=== PATIENT | male | born 1960 | race Caucasian/White ===

== ENCOUNTER 2017-10-11 02:46 | Inpatient (IN) | payer BC, OTHER ==
[2017-10-11] VITALS (8 sets, daily range): BP systolic 87–116; BP diastolic 55–70
[~2017-10-11] VITALS: Ht 182.9 cm; Wt 72.7 kg
[2017-10-11] MEDS ORDERED: TOPROL XL100 MG PO (02:52)
[2017-10-11] MEDS ORDERED: PRILOSEC OTC20 MG PO (02:52)
[2017-10-11] MEDS ORDERED: CIPROFLOXACIN500 MG PO (02:52)
[2017-10-11] MEDS ORDERED: LISINOPRIL10 MG PO (02:52)
[2017-10-11] MEDS ORDERED: LEVALBUTEROL HCL SOLN NEBU 0.63 MG/3 ML NEB INH STA (03:04)
[2017-10-11] MEDS ORDERED: IPRATROPIUM BROMIDE 0.02% 2.5 ML NEB NEB STA (03:04)
[2017-10-11] MEDS ORDERED: SODIUM CHLORIDE 0.9% 1000ML 1,000 ML IV STA ×2 (03:09→04:17)
[2017-10-11 03:13] LABS: BASOPHILS % 0.3 % (0.0-1.0); EOSINOPHILS % 0.5 % (0.0-6.0); HEMATOCRIT 39.9 % (38.2-49.6); HEMOGLOBIN 13.8 g/dL (14.0-18.0); LYMPHOCYTES # (AUTO) 0.7 (1.0-3.2); MEAN CORPUSCULAR HEMOGLOBIN 31.7 pg (28-32); MEAN CORPUSCULAR HGB CONC 34.6 g/dL (31-35); MEAN CORPUSCULAR VOLUME 91.7 fL (81-99); MONOCYTES # (AUTO) 0.1 (0.2-0.8); MONOCYTES % 2.3 % (4.4-11.3); NEUTROPHILS # (AUTO) 4.8 (2.1-6.9); NEUTROPHILS % 83.9 % (38.7-80.0); PLATELET COUNT 132 x10e3/uL (140-360); RED BLOOD COUNT 4.35 x10e6/uL (4.3-5.7); RED CELL DISTRIBUTION WIDTH 13.8 % (11.7-14.4)
[2017-10-11] MEDS ORDERED: SODIUM CHLORIDE 0.9% 1000ML 1,000 ML ONE (03:16)
[2017-10-11 03:18] LABS: BILIRUBIN,URINE NEGATIVE (NEGATIVE); KETONES,URINE NEGATIVE (NEGATIVE); LEUKOCYTE ESTERASE ,URINE TRACE (NEGATIVE); NITRITE,URINE NEGATIVE (NEGATIVE); URINE UROBILINOGEN 0.2 mg/dL (0.2 - 1)
[2017-10-11 03:23] LABS: CLARITY,URINE CLEAR (CLEAR); COLOR,URINE YELLOW (YELLOW); PROTEIN,URINE DIPSTICK 1+ (NEGATIVE)
[2017-10-11 03:28] LABS: INR 1.24; PROTHROMBIN TIME 14.7 seconds (11.9-14.5)
[2017-10-11 03:29] LABS: PARTIAL THROMBOPLASTIN TIME 30.3 seconds (23.8-35.5)
[2017-10-11 03:30] LABS: BACTERIA,URINE RARE /HPF; EPITHELIAL CELLS,URINE FEW /LPF
[2017-10-11 03:36] LABS: ALANINE AMINOTRANSFERASE 16 IU/L (0-55); ALBUMIN 3.3 g/dL (3.5-5.0); ALKALINE PHOSPHATASE 83 IU/L (40-150); ANION GAP 13.4 mmol/L (8-16); B-TYPE NATRIURETIC PEPTIDE2 84.5 pg/mL (0-100); BLOOD UREA NITROGEN 16 mg/dL (7-26); BUN/CREATININE RATIO 17 (6-25); CALCIUM 8.5 mg/dL (8.4-10.2); CARBON DIOXIDE 22 mmol/L (22-29); CHLORIDE 105 mmol/L (98-107); CREATINE KINASE 57 IU/L (30-200); CREATININE, SERUM 0.92 mg/dL (0.72-1.25); EST GLOMERULAR FILTRATION RATE > 60 ML/MIN (60-); GLUCOSE 147 mg/dL (74-118); MAGNESIUM 1.4 MG/DL (1.3-2.1); POTASSIUM 3.4 mmol/L (3.5-5.1); SODIUM 137 mmol/L (136-145)
[2017-10-11] MEDS ORDERED: CEFTRIAXONE SOD 1 GM VIAL IV SCH (03:45)
[2017-10-11] MEDS: AZITHROMYCIN 500MG/NS 250 ML 250 ML IV SCH ×2 (03:53→09:05)
--- NOTE | 2017-10-11 03:54 | Diagnostic Imaging Report ---
EXAM: CHEST SINGLE (PORTABLE), AP 1 view INDICATION: Shortness of breath COMPARISON: None FINDINGS: LINES/TUBES: None LUNGS: No consolidations or edema. PLEURA: No effusions or pneumothorax. HEART AND MEDIASTINUM: Normal size and contour. BONES AND SOFT TISSUES: No acute findings. Old right-sided rib fractures. IMPRESSION: No acute thoracic abnormality. Signed by: Dr. Rochelle Downey M.D. on 10/11/2017 3:50 AM
--- OUTSIDE RECORDS SUMMARY | 2017-10-11 04:25 | XMS REPORT ---
Author Author [facility] Address Unknown Phone Unavailable Care Team Providers Care Model Maker Plaster Name Role Phone VALARIE RAMIRO Unavailable Unavailable Problems This patient has no known problems. Allergies, Adverse Reactions, Alerts This patient has no known allergies or adverse reactions. Medications This patient has no known medications. Results Test Description Test Time Test Comments Text Results Atomic Results Result Comments CHEST SINGLE (PORTABLE) [place] [address] Patient Name: CIERRA CLARKE MR #: [id number] : 1960 Age/Sex: 57/M Req #: [id number] Adm Physician: Ordered by: RAMIRO SHEPPARD MD Report #: [id number] Location: ER Room/Bed: Procedure: [id number] DX/CHEST SINGLE (PORTABLE) Exam Date: Exam Time: REPORT STATUS: Signed EXAM: CHEST SINGLE (PORTABLE ), AP 1 view INDICATION: Shortness of breath COMPARISON: None FINDINGS : LINES/TUBES: None LUNGS: No consolidations or edema. PLEURA: No effusions or pneumothorax. HEART AND MEDIASTINUM: Normal size and contour. BONES AND SOFT TISSUES: No acute findings. Old right-sided rib fractures. IMPRESSION: No acute thoracic abnormality. Signed by: Dr. Isaac Lugo M.D. on 10/11/2017 3:50 AM Dictated By: ISAAC LUGO MD 9 Transcribed By : DELGADO on 10/11/17349 COPY TO: RAMIRO SHEPPARD MD
[2017-10-11] MEDS ORDERED: MORPHINE SULFATE 2 MG/ML SYR IV PRN (04:30)
[2017-10-11] MEDS ORDERED: ONDANSETRON HCL INJ 2 MG/ML VIAL IV PRN (04:30)
[2017-10-11] MEDS ORDERED: LORAZEPAM INJ 2 MG/ML VIAL IV PRN (04:30)
[2017-10-11] MEDS ORDERED: KCL 20MEQ/.9 SOD CHL 1,000 ML IV ONE (04:30)
[2017-10-11] MEDS ORDERED: METHYLPREDNISOLONE SOD SUCC 125 MG/2ML VIAL IV SCH (06:00)
[2017-10-11] MEDS: IPRATROPIUM BROMIDE 0.02% 2.5 ML NEB NEB SCH ×4 (07:00→20:30)
[2017-10-11] MEDS ORDERED: LEVALBUTEROL HCL SOLN NEBU 0.63 MG/3 ML NEB INH SCH (07:00)
[2017-10-11] MEDS ORDERED: FAMOTIDINE 20 MG/2 ML VIAL IV SCH (09:00)
[2017-10-11] MEDS ORDERED: ASPIRIN 81 MG ENTERIC COATED PO SCH (09:00)
[2017-10-11] MEDS ORDERED: NICOTINE 21 MG/EA PATCH TOP PRN (10:15)
[2017-10-11] MEDS: SODIUM CHLORIDE 0.9% 1000ML 1,000 ML IV SCH ×2 (10:28→21:34)
[2017-10-11] MEDS ORDERED: POTASSIUM CHLORIDE 20 MEQ TAB CR PO ONE (10:40)
--- NOTE | 2017-10-11 11:12 | Diagnostic Imaging Report ---
PROCEDURE: CHEST SINGLE (PORTABLE) COMPARISON: Earlier 10/11/2017 INDICATIONS: COUGH FINDINGS: Lungs remain clear without consolidation, pleural effusion, or pneumothorax. Cardiomediastinal contour and pulmonary vasculature are within normal limits. No acute osseous abnormalities. Right-sided rib fracture deformities. CONCLUSION: No acute cardiopulmonary abnormality. Dictated by: Prosper Bradford M.D. on 10/11/2017 at 11:12 Electronically approved by: Prosper Bradford M.D. on 10/11/2017 at 11:12
[2017-10-11] MEDS: ASPIRIN 325 MG TAB PO SCH (12:33)
[2017-10-11] MEDS ORDERED: HEPARIN SOD (PORCINE) 5,000 UNIT/ML VIAL IV ONE (13:30)
[2017-10-11] MEDS ORDERED: PIPER-TAZ 3.375 GM/50 ML BAG IV SCH (14:00)
[2017-10-11] MEDS: PIPER-TAZ 3.375 GM 50 ML IV SCH ×2 (14:17→21:12)
[2017-10-11 14:42] LABS: BASOPHILS % 0.1 % (0.0-1.0); HEMOGLOBIN 12.7 g/dL (14.0-18.0); LYMPHOCYTES # (AUTO) 0.4 (1.0-3.2); MEAN CORPUSCULAR HEMOGLOBIN 31.4 pg (28-32); MEAN CORPUSCULAR HGB CONC 33.4 g/dL (31-35); MEAN CORPUSCULAR VOLUME 93.8 fL (81-99); MONOCYTES # (AUTO) 0.2 (0.2-0.8); MONOCYTES % 2.1 % (4.4-11.3); NEUTROPHILS # (AUTO) 7.2 (2.1-6.9); NEUTROPHILS % 92.4 % (38.7-80.0); PLATELET COUNT 126 x10e3/uL (140-360); RED BLOOD COUNT 4.05 x10e6/uL (4.3-5.7); RED CELL DISTRIBUTION WIDTH 14.1 % (11.7-14.4)
[2017-10-11 14:51] LABS: INR 1.35; PROTHROMBIN TIME 15.7 seconds (11.9-14.5)
[2017-10-11] MEDS: HEPARIN 25,000U/0.45% NS 250ML 1,000 UNIT in SODIUM CHLORIDE 0.9% 250ML 0 ML IV SCH (15:00)
[2017-10-11 15:24] LABS: LYMPHOCYTES % (MANUAL) 9 % (19-48); MONOCYTES % (MANUAL) 2 % (3.4-9.0); NEUTROPHILS % (MANUAL) 89 % (40-74)
[2017-10-11 15:25] LABS: PLATELET ESTIMATE SLIGHTLY DECREASED; POLYCHROMASIA FEW; RBC MORPHOLOGY COMMENT NORMAL
[2017-10-11] MEDS ORDERED: ENOXAPARIN SOD INJ 40 MG/0.4 ML SYR SC SCH (17:00)
[2017-10-11 18:53] LABS: CREATINE KINASE MB 5.2 ng/mL (0-5.0)
[2017-10-11 19:01] LABS: CHOL/HDL RATIO 2.5 (3.9-4.7)
[2017-10-12] VITALS (8 sets, daily range): BP systolic 97–144; BP diastolic 55–82
[2017-10-12] MEDS: IPRATROPIUM BROMIDE 0.02% 2.5 ML NEB NEB SCH ×3 (00:15→06:30)
[2017-10-12] MEDS: ACETAMINOPHEN 325 MG TAB PO PRN (00:25)
[2017-10-12 04:10] LABS: BASOPHILS % 0.2 % (0.0-1.0); HEMATOCRIT 36.8 % (38.2-49.6); HEMOGLOBIN 12.4 g/dL (14.0-18.0); LYMPHOCYTES % 9.1 % (18.0-39.1); MEAN CORPUSCULAR HEMOGLOBIN 31.6 pg (28-32); MEAN CORPUSCULAR HGB CONC 33.7 g/dL (31-35); MEAN CORPUSCULAR VOLUME 93.9 fL (81-99); MONOCYTES # (AUTO) 0.6 (0.2-0.8); MONOCYTES % 5.4 % (4.4-11.3); NEUTROPHILS # (AUTO) 9.1 (2.1-6.9); NEUTROPHILS % 84.8 % (38.7-80.0); PLATELET COUNT 118 x10e3/uL (140-360); RED BLOOD COUNT 3.92 x10e6/uL (4.3-5.7); RED CELL DISTRIBUTION WIDTH 14.3 % (11.7-14.4)
[2017-10-12 04:33] LABS: ALANINE AMINOTRANSFERASE 35 IU/L (0-55); ALBUMIN 2.8 g/dL (3.5-5.0); ALKALINE PHOSPHATASE 65 IU/L (40-150); ANION GAP 11.2 mmol/L (8-16); BLOOD UREA NITROGEN 13 mg/dL (7-26); BUN/CREATININE RATIO 19 (6-25); CALCIUM 8.2 mg/dL (8.4-10.2); CARBON DIOXIDE 22 mmol/L (22-29); CHLORIDE 110 mmol/L (98-107); CHOL/HDL RATIO 2.4 (3.9-4.7); CHOLESTEROL 88 MD/DL (0-199); CREATININE, SERUM 0.68 mg/dL (0.72-1.25); EST GLOMERULAR FILTRATION RATE > 60 ML/MIN (60-); GLUCOSE 119 mg/dL (74-118); HDL CHOLESTEROL 37 MG/DL (40-60); LDL CHOLESTEROL 41 MG/DL (60-130); MAGNESIUM 1.6 MG/DL (1.3-2.1); POTASSIUM 4.2 mmol/L (3.5-5.1); SODIUM 139 mmol/L (136-145); TRIGLYCERIDES 50 MG/DL (0-149)
[2017-10-12 04:40] LABS: CREATINE KINASE MB 4.1 ng/mL (0-5.0)
[2017-10-12] MEDS: PIPER-TAZ 3.375 GM 50 ML IV SCH (05:26)
[2017-10-12] MEDS ORDERED: SODIUM CHLORIDE 0.9% 100 ML ONE (05:57)
[2017-10-12] MEDS: SODIUM CHLORIDE 0.9% 1000ML 1,000 ML IV SCH (07:12)
[2017-10-12] MEDS: PREDNISONE 20 MG TAB PO SCH (08:34)
[2017-10-12] MEDS: ASPIRIN 325 MG TAB PO SCH (08:34)
[2017-10-12] MEDS ORDERED: ALBUTEROL/IPRATROPIUM 3 ML NEB NEB PRN (10:00)
[2017-10-12 10:35] LABS: CREATINE KINASE MB 4.6 ng/mL (0-5.0)
[2017-10-12] MEDS: ALBUTEROL/IPRATROPIUM 3 ML NEB NEB SCH ×3 (11:25→19:15)
--- NOTE | 2017-10-12 13:20 | Progress Note ---
DATE: October 12, 2017 CARDIOLOGY PROGRESS NOTE SUBJECTIVE: Patient denies chest pain or shortness of breath. OBJECTIVE VITAL SIGNS: Temperature 97.6 degrees, pulse 56, respiratory rate 16, blood pressure 113/62, oxygen saturation 97% on room air. GENERAL: Awake, alert, in no acute distress. LUNGS: Clear to auscultation bilaterally. No wheezes or crackles. CARDIOVASCULAR: Normal rate, regular rhythm. No murmur. Normal S1 and S2. ABDOMEN: Soft, nontender. EXTREMITIES: No edema. CARDIAC MEDICATIONS 1. Aspirin 325 mg p.o. daily. 2. Heparin drip. LABS: WBC 10.73, hemoglobin 12.4, hematocrit 36.8, platelets 118. Sodium 139, potassium 4.2, chloride 110, CO2 22, BUN 13, creatinine 0.68. Troponin 0.395. TELEMETRY: Sinus bradycardia. IMPRESSION 1. Neb-GB-oyteugdix myocardial infarction. 2. Chronic obstructive pulmonary disease exacerbation. 3. Hypertension. 4. Urinary tract infection, gram-negative rods. RECOMMENDATIONS: Continue heparin drip. Continue current cardiac medications. No beta luana given sinus bradycardia. Planned for cardiac catheterization tomorrow. NPO after midnight. Thank you for this consult. We will continue to follow. Job#: [id number] EV NICOLE
--- NOTE | 2017-10-12 14:04 | Consultation ---
DATE OF CONSULTATION: October 11, 2017 CARDIOLOGY CONSULTATION REQUESTING PHYSICIAN: Dr. Ellyn Guevara REASON FOR CONSULTATION: Chest pain. HISTORY OF PRESENT ILLNESS: This is a 57-year-old male with history of hypertension and tobacco abuse, who presents with complaints of shortness of breath and chest pain. The patient reports he woke up this morning at 1 a.m. with shortness of breath, this was associated with left-sided chest discomfort and nausea. The pain was 5/10 in severity and it occurred intermittently. He denied any edema, orthopnea, or PND. The patient did, however, endorse headache and chills last night. REVIEW OF SYSTEMS: Negative except as per HPI. PAST MEDICAL HISTORY: Hypertension. PAST SURGICAL HISTORY: Tympanic membrane surgery. ALLERGIES: NO KNOWN DRUG ALLERGIES. MEDICATIONS: Please see EMR. SOCIAL HISTORY: He smokes a pack a day for the last 40 years. Denies any illicit drugs, but does drink alcohol. FAMILY HISTORY: He reports his father had heart disease, but does not know any details. OBJECTIVE: VITAL SIGNS: Temperature 98.2 degrees, pulse 61, respiratory rate 20, blood pressure 105/70, oxygen saturation 99% on room air. GENERAL: Well-developed, well-nourished man, in no acute distress. HEENT: Normocephalic, atraumatic. Pupils equal. No scleral icterus. NECK: Supple. No thyromegaly or cervical lymphadenopathy. No carotid bruits. LUNGS: Clear to auscultation bilaterally. No wheezes or crackles. CARDIOVASCULAR: Regular rhythm, bradycardic. No murmur. Normal S1 and S2. ABDOMEN: Soft, nontender. EXTREMITIES: No edema. NEURO: Nonfocal exam. LABS: WBC 7.74, hemoglobin 12.7, hematocrit 38, platelets 126,000. Sodium 137, potassium 3.4, chloride 105, CO2 22, BUN 16, creatinine 0.92. Troponin 0.771. BNP 84.5. Chest x-ray, no acute cardiopulmonary abnormality. EKG, normal sinus rhythm, prolonged QT. IMPRESSION: 1. Osf-ZN-gvvvxffjc myocardial infarction. 2. Thrombocytopenia. 3. Chronic obstructive pulmonary disease. 4. Hypertension. 5. Tobacco abuse. RECOMMENDATIONS: Trend cardiac enzymes. Obtain echocardiogram. Patient has been started on heparin drip. Continue aspirin. We will check lipid panel. Given risk factors and non-ST elevation myocardial infarction, patient will need cardiac catheterization for further evaluation. Thank you for this consult. We will continue to follow. Job#: [id number] DR RIVERA
--- NOTE | 2017-10-12 15:34 | Diagnostic Imaging Report ---
PROCEDURE:US ABDOMEN LIMITED COMPARISON:None. INDICATIONS:R/O CIRRHOSIS TECHNIQUE: Shepard-scale and color doppler transverse and longitudinal images of the right upper quadrant of the abdomen were obtained. FINDINGS: Liver: 11.4 cm in right mid-clavicular line. Normal hepatic contour. Normal echogenicity. No masses. Main portal vein: 0.9 cm, hepatopetal flow Gallbladder: No stones or sludge. The gallbladder wall is thickened, measuring 0.8 cm. Trace pericholecystic fluid. Common Bile Duct: 0.3 cm Sonographic Fairchild's sign: Negative Right kidney: 12.2 cm. Normal echogenicity. No solid masses or hydronephrosis. 2.2 x 1.7 x 2.0 cm cystic, mostly anechoic lesion in the inferior pole, which contains a thin, noncalcified, nonvascular septation. Pancreas: The visualized portions are unremarkable. Inferior vena cava: Patent Aorta: Within normal limits Ascites: None in the right upper quadrant of the abdomen. Incidental note is made of small right pleural effusion CONCLUSION: 1. No sonographic evidence of cirrhosis. 2. Thickened gallbladder wall with trace pericholecystic fluid. No echogenic stones or sludge are identified. Acalculous cholecystitis is a consideration in this hospitalized patient. Sonographic Fairchild sign may be negative due to prior analgesic administration. 3. 2.2 cm minimally complex cyst in the inferior pole of the right kidney. Kiran Castillo M.D. Dictated by: Kiran Castillo M.D. on 10/12/2017 at 15:34 Electronically approved by: Kiran Castillo M.D. on 10/12/2017 at 15:34
[2017-10-12] MEDS: HEPARIN 25,000U/0.45% NS 250ML 1,000 UNIT in SODIUM CHLORIDE 0.9% 250ML 0 ML IV SCH (15:37)
[2017-10-12] MEDS: DOXYCYCLINE HYCLATE TABLET 100 MG TAB PO SCH (17:54)
[2017-10-13] VITALS (9 sets, daily range): BP systolic 107–147; BP diastolic 60–84
[2017-10-13] MEDS ORDERED: LORAZEPAM INJ 2 MG/ML VIAL IV ONE (05:45)
[2017-10-13 06:44] LABS: BASOPHILS % 0.2 % (0.0-1.0); EOSINOPHILS % 0.1 % (0.0-6.0); HEMOGLOBIN 12.9 g/dL (14.0-18.0); LYMPHOCYTES # (AUTO) 1.4 (1.0-3.2); LYMPHOCYTES % 14.3 % (18.0-39.1); MEAN CORPUSCULAR HEMOGLOBIN 31.2 pg (28-32); MEAN CORPUSCULAR HGB CONC 33.1 g/dL (31-35); MEAN CORPUSCULAR VOLUME 94.2 fL (81-99); MONOCYTES # (AUTO) 0.4 (0.2-0.8); MONOCYTES % 3.7 % (4.4-11.3); NEUTROPHILS # (AUTO) 7.8 (2.1-6.9); NEUTROPHILS % 81.3 % (38.7-80.0); PLATELET COUNT 145 x10e3/uL (140-360); RED BLOOD COUNT 4.14 x10e6/uL (4.3-5.7); RED CELL DISTRIBUTION WIDTH 14.5 % (11.7-14.4)
[2017-10-13] MEDS: ALBUTEROL/IPRATROPIUM 3 ML NEB NEB SCH (07:20)
[2017-10-13 07:25] LABS: ALANINE AMINOTRANSFERASE 36 IU/L (0-55); ALBUMIN 2.8 g/dL (3.5-5.0); ALKALINE PHOSPHATASE 70 IU/L (40-150); ANION GAP 11.6 mmol/L (8-16); BILIRUBIN,DIRECT 0.2 mg/dL (0.0-0.5); BLOOD UREA NITROGEN 10 mg/dL (7-26); BUN/CREATININE RATIO 13 (6-25); CALCIUM 8.5 mg/dL (8.4-10.2); CARBON DIOXIDE 27 mmol/L (22-29); CHLORIDE 108 mmol/L (98-107); CREATININE, SERUM 0.75 mg/dL (0.72-1.25); EST GLOMERULAR FILTRATION RATE > 60 ML/MIN (60-); GLUCOSE 80 mg/dL (74-118); MAGNESIUM 1.5 MG/DL (1.3-2.1); POTASSIUM 3.6 mmol/L (3.5-5.1); SODIUM 143 mmol/L (136-145)
[2017-10-13] MEDS ORDERED: PIPER-TAZ 3.375 GM/50 ML BAG IV SCH (09:45)
[2017-10-13] MEDS ORDERED: LORAZEPAM INJ 2 MG/ML VIAL IV PRN (09:45)
[2017-10-13] MEDS: DOXYCYCLINE HYCLATE TABLET 100 MG TAB PO SCH (09:55)
[2017-10-13] MEDS: PREDNISONE 20 MG TAB PO SCH (09:58)
[2017-10-13] MEDS: ACETAMINOPHEN 325 MG TAB PO PRN (09:58)
[2017-10-13] MEDS: ASPIRIN 325 MG TAB PO SCH (10:22)
[2017-10-13] MEDS: METOPROLOL TARTRATE 25 MG TAB PO SCH ×2 (10:23→17:30)
[2017-10-13] MEDS: PIPER-TAZ 3.375 GM 50 ML IV SCH ×2 (10:34→18:42)
--- NOTE | 2017-10-13 10:55 | Diagnostic Imaging Report ---
PROCEDURE: A single AP view of the chest. COMPARISON: None. INDICATIONS: COUGH, COPD FINDINGS: Lines/tubes: None. Lungs: No focal consolidation. No parenchymal mass. Bibasilar atelectasis. Pleura: There is no pleural effusion or pneumothorax. Heart and mediastinum: The heart and the mediastinum are unremarkable. Atherosclerotic calcifications. Bones: No acute bony abnormality. Degenerative changes of the thoracic spine. Healed right lateral rib fractures. IMPRESSION: No acute radiographic abnormality. Dictated by: Donaldo Griffiths M.D. on 10/13/2017 at 10:55 Electronically approved by: Donaldo Griffiths M.D. on 10/13/2017 at 10:55
[2017-10-13] MEDS: IPRATROPIUM BROMIDE 0.02% 2.5 ML NEB NEB SCH ×2 (11:30→20:05)
[2017-10-13] MEDS ORDERED: SINCALIDE 3 MCG/VIAL INJ ONE (11:59)
[2017-10-13] MEDS ORDERED: PIPER-TAZ 3.375 GM 50 ML IV SCH (14:00)
[2017-10-13] MEDS: HEPARIN 25,000U/0.45% NS 250ML 1,000 UNIT in SODIUM CHLORIDE 0.9% 250ML 0 ML IV SCH (17:39)
--- NOTE | 2017-10-13 18:51 | Diagnostic Imaging Report ---
Hepatobiliary Scan with Gallbladder Ejection Fraction Clinical information: Chronic abdominal pain x >1 year Report: Following intravenous administration of 6.5 millicuries of Tc-99m mebrofenin, dynamic images of the abdomen in the anterior projection were obtained through 30 minutes. Sincalide (CCK analog) 2.2 micrograms was administered intravenously over 30 minutes with additional imaging for determination of gallbladder ejection fraction. Perfusion to the liver is normal. Extraction of tracer from the blood pool by the liver parenchyma is normal. Tracer is seen promptly within the biliary tract. The gallbladder begins to fill by 12 minutes post-injection of tracer and fills adequately. Tracer is seen in the small bowel by 12 minutes. The gallbladder ejection fraction with administration of sincalide is 89% (normal greater than 40%). Impression: 1. Filling of the gallbladder excludes the diagnosis of acute cystic duct obstruction/acute cholecystitis. 2. Normal gallbladder ejection fraction of 89% does not support the clinical diagnosis of chronic cholecystitis/gallbladder dyskinesia. Signed by: Dr. Yaz Villagran M.D. on 10/13/2017 6:47 PM
--- NOTE | 2017-10-13 21:11 | Progress Note ---
DATE: October 13, 2017 SUBJECTIVE: The patient denies chest pain or shortness of breath. He spiked fever to 103 degrees this morning. Cardiac catheterization was, therefore, canceled. OBJECTIVE VITAL SIGNS: Temperature 97.8 degrees, pulse 68, respiratory rate 15, blood pressure 107/60, oxygen saturation 96% on room air. GENERAL: Awake, alert, in no acute distress. LUNGS: Clear to auscultation bilaterally. No wheezes or crackles. CARDIOVASCULAR: Normal rate, regular rhythm. No murmur. Normal S1 and S2. ABDOMEN: Soft, nontender. EXTREMITIES: No edema. CARDIAC MEDICATIONS 1. Aspirin 325 mg p.o. daily. 2. Heparin drip. 3. Metoprolol tartrate 25 mg p.o. b.i.d. LABS: WBC 9.54, hemoglobin 12.9, hematocrit 39, platelets 145,000. Sodium 143, potassium 3.6, chloride 108, CO2 of 27, BUN 10, creatinine 0.75. TELEMETRY: Sinus bradycardia. IMPRESSION 1. Kpz-MR-bwkvzbjwa myocardial infarction. 2. Fever. 3. Extended-spectrum beta lactamase Escherichia coli urinary tract infection. 4. Chronic obstructive pulmonary disease. 5. Hypertension. 6. Tobacco abuse. RECOMMENDATIONS: Continue current cardiac medications. The patient is tolerating beta blockade. Plan for cardiac catheterization once the patient is no longer febrile. Antibiotics per primary service. Thank you for this consult. We will continue to follow. Job#: [id number]
--- NOTE | 2017-10-13 23:49 | Consultation ---
DATE OF CONSULTATION: October 13, 2017 REASON FOR CONSULTATION: Pneumonia. HISTORY OF PRESENT ILLNESS: He is 57-year-old with history of hypertension, tobacco abuse, comes in with shortness of breath, not feeling well, feeling feverish, feeling weak. Patient also has left-sided chest pain and discomfort with some nausea. His pain was about 5/10. Mr. Moore, who came in with shortness of breath and chest pain as mentioned above. PAST MEDICAL HISTORY: Hypertension, obesity. PAST SURGICAL HISTORY: Tympanic membrane surgery. ALLERGIES: NKA. SOCIAL HISTORY: He smoked 1 pack a day for 40 years. FAMILY HISTORY: Heart disease. REVIEW OF SYSTEMS: General: He is just not feeling well, a little bit feverish. Chest pain and shortness of breath. Patient was admitted, it was felt he has non-ST elevation myocardial infarction. Thrombocytopenia, chronic obstructive pulmonary disease, tobacco abuse. He was seen by cardiology. Infectious disease was consulted today. LABORATORY DATA: His urine is showing ESBL. Blood cultures are negative. His white count is 9.5, hemoglobin 12, hematocrit 39. Sodium of 143, potassium 3.6, creatinine 0.75. PHYSICAL EXAMINATION: GENERAL: He is currently alert and oriented, does not seem to be in acute distress. VITALS: Stable, currently afebrile. HEENT: He does not appear icteric. NECK: Supple. CHEST: Clear. COR: S1 and S2, no murmur. ABDOMEN: Soft. Bowel sounds present. No tenderness. EXTREMITIES: No edema. SKIN: No rash. IMPRESSION: Urinary tract infection with extended-spectrum beta-lactamase. He is on Zosyn. He will need 2 weeks of intravenous antibiotic. Will get a peripherally inserted central catheter line. Will see what we can do in terms of outpatient intravenous antibiotic. Will follow with you. Job#: [id number]
[2017-10-14] VITALS (7 sets, daily range): BP systolic 120–160; BP diastolic 63–86
[2017-10-14] MEDS: IPRATROPIUM BROMIDE 0.02% 2.5 ML NEB NEB SCH ×4 (02:25→20:00)
[2017-10-14] MEDS: PIPER-TAZ 3.375 GM 50 ML IV SCH ×3 (03:57→18:10)
[2017-10-14 06:45] LABS: BASOPHILS % 0.2 % (0.0-1.0); EOSINOPHILS # (AUTO) 0.1 (0.0-0.4); EOSINOPHILS % 0.6 % (0.0-6.0); HEMATOCRIT 37.1 % (38.2-49.6); HEMOGLOBIN 12.4 g/dL (14.0-18.0); LYMPHOCYTES # (AUTO) 1.8 (1.0-3.2); LYMPHOCYTES % 21.2 % (18.0-39.1); MEAN CORPUSCULAR HEMOGLOBIN 31.2 pg (28-32); MEAN CORPUSCULAR HGB CONC 33.4 g/dL (31-35); MEAN CORPUSCULAR VOLUME 93.2 fL (81-99); MONOCYTES # (AUTO) 0.8 (0.2-0.8); MONOCYTES % 9.7 % (4.4-11.3); NEUTROPHILS # (AUTO) 5.7 (2.1-6.9); NEUTROPHILS % 67.8 % (38.7-80.0); PLATELET COUNT 153 x10e3/uL (140-360); RED BLOOD COUNT 3.98 x10e6/uL (4.3-5.7); RED CELL DISTRIBUTION WIDTH 14.3 % (11.7-14.4)
[2017-10-14 07:18] LABS: ALANINE AMINOTRANSFERASE 29 IU/L (0-55); ALBUMIN 2.5 g/dL (3.5-5.0); ALKALINE PHOSPHATASE 57 IU/L (40-150); ANION GAP 9.7 mmol/L (8-16); BILIRUBIN,DIRECT 0.2 mg/dL (0.0-0.5); BLOOD UREA NITROGEN 8 mg/dL (7-26); BUN/CREATININE RATIO 12 (6-25); CALCIUM 8.3 mg/dL (8.4-10.2); CARBON DIOXIDE 26 mmol/L (22-29); CHLORIDE 107 mmol/L (98-107); CREATININE, SERUM 0.69 mg/dL (0.72-1.25); EST GLOMERULAR FILTRATION RATE > 60 ML/MIN (60-); GLUCOSE 84 mg/dL (74-118); LIPASE 31 U/L (8-78); POTASSIUM 3.7 mmol/L (3.5-5.1); SODIUM 139 mmol/L (136-145)
[2017-10-14] MEDS: METOPROLOL TARTRATE 25 MG TAB PO SCH ×2 (09:02→17:38)
[2017-10-14] MEDS: ASPIRIN 325 MG TAB PO SCH (09:02)
[2017-10-14] MEDS: PREDNISONE 20 MG TAB PO SCH (09:02)
--- NOTE | 2017-10-14 12:55 | Progress Note ---
DATE: October 14, 2017 CARDIOLOGY PROGRESS NOTE SUBJECTIVE: The patient denies chest pain or shortness of breath. OBJECTIVE VITAL SIGNS: Temperature 97 degrees, pulse 75, respiratory rate 17, blood pressure 160/86, oxygen saturation 98% on room air. GENERAL: Awake, alert, in no acute distress. LUNGS: Clear to auscultation bilaterally. No wheezes or crackles. CARDIOVASCULAR: Normal rate, regular rhythm. No murmur. Normal S1 and S2. ABDOMEN: Soft, nontender. EXTREMITIES: No edema. CARDIAC MEDICATIONS 1. Metoprolol tartrate 25 mg p.o. b.i.d. 2. Aspirin 325 mg p.o. daily. LABS: WBC 8.39, hemoglobin 12.4, hematocrit 37.1, platelets 153. Sodium 139, potassium 3.7, chloride 107, CO2 26, BUN 8, creatinine 0.69. TELEMETRY: Normal sinus rhythm. IMPRESSION 1. Vst-FY-iyyfjqexa myocardial infarction. 2. Fever. 3. Extended-spectrum beta lactamase Escherichia coli urinary tract infection. 4. Chronic obstructive pulmonary disease exacerbation. 5. Hypertension. 6. Tobacco abuse. RECOMMENDATIONS: The patient is hypertensive. We will increase his beta blockade. Fever has resolved. Blood cultures are no growth to date. Continue heparin drip. We will start statin therapy. Antibiotics per infectious disease. Possible cardiac catheterization tomorrow if the patient remains afebrile. Thank you for this consult. We will continue to follow. Job#: [id number]
--- NOTE | 2017-10-14 13:58 | Diagnostic Imaging Report ---
PROCEDURE: A single AP view of the chest. COMPARISON: None. INDICATIONS: PICC FINDINGS: Lines/tubes: Right PICC line with tip at high to mid SVC. Lungs: The lungs are well inflated and clear. There is no evidence of pneumonia or pulmonary edema. Pleura: There is no pleural effusion or pneumothorax. Heart and mediastinum: The heart and the mediastinum are unremarkable. Bones: No acute bony abnormality. IMPRESSION: Right PICC line with tip in high to mid SVC. No acute cardiopulmonary disease. Dictated by: Toby Montoya M.D. on 10/14/2017 at 13:59 Electronically approved by: Toby Montoya M.D. on 10/14/2017 at 13:59
[2017-10-14] MEDS ORDERED: LORAZEPAM INJ 2 MG/ML VIAL IV PRN (14:00)
[2017-10-14] MEDS ORDERED: SODIUM CHLORIDE 0.9% 1000ML 2,000 ML ONE (15:13)
[2017-10-14] MEDS: HEPARIN 25,000U/0.45% NS 250ML 1,000 UNIT in SODIUM CHLORIDE 0.9% 250ML 0 ML IV SCH (17:38)
[2017-10-15] MEDS: PIPER-TAZ 3.375 GM 50 ML IV SCH ×3 (01:24→18:15)
[2017-10-15 05:39] VITALS: BP 160/85
[2017-10-15 07:10] VITALS: BP 140/75
[2017-10-15] MEDS: IPRATROPIUM BROMIDE 0.02% 2.5 ML NEB NEB SCH ×2 (07:42→19:33)
[2017-10-15] MEDS: ASPIRIN 325 MG TAB PO SCH (09:00)
[2017-10-15] MEDS: METOPROLOL TARTRATE 25 MG TAB PO SCH ×2 (09:16→17:37)
[2017-10-15] MEDS: FAMOTIDINE 20 MG/2 ML VIAL IV SCH ×2 (12:00→17:37)
[2017-10-15 12:02] VITALS: BP 147/80
--- NOTE | 2017-10-15 12:14 | Progress Note ---
DATE: October 15, 2017 CARDIOLOGY PROGRESS NOTE SUBJECTIVE: The patient denies chest pain or shortness of breath. He continues to complain of gas. He is n.p.o. for cardiac catheterization today. OBJECTIVE VITAL SIGNS: Temperature 96.3 degrees, pulse 64, respiratory rate 17, blood pressure 140/75, oxygen saturation 97% on room air. GENERAL: Awake, alert, in no acute distress. LUNGS: Clear to auscultation bilaterally. No wheezes or crackles. CARDIOVASCULAR: Normal rate, regular rhythm. No murmur. Normal S1 and S2. ABDOMEN: Soft, nontender. EXTREMITIES: No edema. CARDIAC MEDICATIONS 1. Metoprolol tartrate 50 mg p.o. b.i.d. 2. Aspirin 325 mg p.o. daily. LABS: None today. TELEMETRY: Sinus bradycardia. IMPRESSION 1. Pfu-WA-sgdsllpaz myocardial infarction. 2. Extended-spectrum beta lactamase Escherichia coli urinary tract infection. 3. Chronic obstructive pulmonary disease exacerbation. 4. Fever, resolved. 5. Hypertension. 6. Tobacco abuse. RECOMMENDATIONS: Continue current cardiac medications. The patient's blood pressure is improved. The patient has been afebrile, and cultures are without growth to date. Proceed with cardiac catheterization. Antibiotics per infectious disease. Thank you for this consult. We will continue to follow. Job#: [id number] JOSE RIVERA
[2017-10-15] MEDS ORDERED: HEPARIN SOD/SOD CHLORIDE 1,000 ML ONE ×2 (14:02→14:07)
[2017-10-15] MEDS ORDERED: HEPARIN SOD (PORCINE) 1000 UNIT/ML 30ML ONE (14:02)
[2017-10-15] MEDS ORDERED: IOPAMIDOL 300MG/ML 100 ML INFUS..BTL IV ONE (14:02)
[2017-10-15] MEDS ORDERED: LIDOCAINE HCL 2% LOCAL 20 ML VIAL ONE (14:02)
[2017-10-15] MEDS ORDERED: SODIUM CHLORIDE 0.9% 1000ML 1,000 ML ONE (14:13)
[2017-10-15] MEDS ORDERED: MIDAZOLAM HCL 2 MG/2 ML VIAL ONE (14:18)
[2017-10-15] MEDS ORDERED: MORPHINE SULFATE 2 MG/ML SYR ONE ×2 (14:18→14:19)
[2017-10-15 16:45] VITALS: BP 143/69
[2017-10-15] MEDS: PREDNISONE 20 MG TAB PO SCH (18:23)
[2017-10-15 19:55] VITALS: BP 134/76
[2017-10-15] MEDS: ACETAMINOPHEN 325 MG TAB PO PRN (20:19)
[2017-10-15] MEDS: ATORVASTATIN 20 MG TAB PO SCH (20:20)
[2017-10-16] VITALS (10 sets, daily range): BP systolic 116–147; BP diastolic 59–80
[2017-10-16] MEDS: PIPER-TAZ 3.375 GM 50 ML IV SCH ×3 (01:55→17:59)
[2017-10-16] MEDS: IPRATROPIUM BROMIDE 0.02% 2.5 ML NEB NEB SCH ×2 (08:00→20:15)
[2017-10-16] MEDS: FAMOTIDINE 20 MG/2 ML VIAL IV SCH ×2 (08:59→17:56)
[2017-10-16] MEDS: METOPROLOL TARTRATE 25 MG TAB PO SCH ×2 (08:59→17:57)
[2017-10-16] MEDS: PREDNISONE 20 MG TAB PO SCH (08:59)
[2017-10-16] MEDS: ASPIRIN 325 MG TAB PO SCH (08:59)
--- NOTE | 2017-10-16 19:50 | Operative Report ---
DATE OF PROCEDURE: October 15, 2017 INDICATIONS: Non ST segment elevation myocardial infarction. PROCEDURES PERFORMED: 1. Left heart catheterization, selective coronary angiography. 2. Deployment of right groin Perclose closure device. COMPLICATIONS: None. RECOMMENDATIONS: Medical therapy. FINDINGS: Mild diffuse coronary artery disease. Access obtained in the right femoral artery. A 6-Croatian sheath was placed. A diagnostic coronary angiogram revealed mild diffuse coronary artery disease in the left main circumflex, left anterior descending, diagonal and right coronary arteries. Excellent flow. No critical stenosis occlusions were noted. Diffuse 20% to 30% stenosis with luminal irregularities. Right groin repaired using Perclose. Patient transferred to floor in stable condition. Job#: [id number]
[2017-10-16] MEDS: ATORVASTATIN 20 MG TAB PO SCH (20:16)
[2017-10-17] MEDS: PIPER-TAZ 3.375 GM 50 ML IV SCH ×3 (01:59→17:28)
[2017-10-17 05:30] VITALS: BP 146/73
[2017-10-17] MEDS: IPRATROPIUM BROMIDE 0.02% 2.5 ML NEB NEB SCH ×2 (06:40→19:30)
[2017-10-17 07:30] VITALS: BP 138/58
[2017-10-17 08:21] VITALS: BP 138/58
[2017-10-17] MEDS: PREDNISONE 20 MG TAB PO SCH (09:09)
[2017-10-17] MEDS: ASPIRIN 325 MG TAB PO SCH (09:09)
[2017-10-17] MEDS: FAMOTIDINE 20 MG/2 ML VIAL IV SCH ×2 (09:09→17:28)
[2017-10-17] MEDS: METOPROLOL TARTRATE 25 MG TAB PO SCH ×2 (09:10→17:28)
[2017-10-17 11:15] VITALS: BP 118/67
--- NOTE | 2017-10-17 14:19 | Progress Note ---
DATE: October 17, 2017 CARDIOLOGY PROGRESS NOTE SUBJECTIVE: No complaints. Feels better overall. OBJECTIVE VITAL SIGNS: Temperature 97.3, heart rate 60, respiratory rate 16, blood pressure 118/67, O2 sat 95% room air. GENERAL: No acute distress. Alert. NECK: No JVD. CHEST: Clear to auscultation. Overall improved compared to yesterday. CARDIOVASCULAR: Regular rate and rhythm. Normal S1 and S2. No S3, no S4. ABDOMEN: Soft. EXTREMITIES: No edema. CARDIOVASCULAR MEDICATIONS: Metoprolol tartrate 50 mg b.i.d., aspirin 325 mg daily. Prednisone 30 mg daily and Zosyn antibiotic as well as nicotine patch. STUDIES: For today, reviewed. TELEMETRY: Sinus rhythm. Episodes of sinus bradycardia. ASSESSMENT: 1. Mild coronary artery disease. 2. Type 2 myocardial infarction. 3. Extended-spectrum beta lactamase Escherichia coli urinary tract infection. 4. Chronic obstructive pulmonary disease exacerbation. 5. Hypertension. 6. Smoker. PLAN: 1. Aspirin. 2. Statin. 3. Beta luana. 4. Smoking cessation counseling, strongly encouraged. 5. Aggressive risk factor modification. 6. Antibiotics per primary service. Job#: [id number]
[2017-10-17 15:18] VITALS: BP 114/72
[2017-10-17 20:31] VITALS: BP 142/81
[2017-10-17] MEDS: ATORVASTATIN 20 MG TAB PO SCH (21:08)
[2017-10-18] VITALS (8 sets, daily range): BP systolic 130–153; BP diastolic 63–81
--- NOTE | 2017-10-18 01:03 | Progress Note ---
DATE: October 17, 2017 INTERNAL MEDICINE PROGRESS NOTE This is coverage for Dr. Guevara. SUBJECTIVE: Mr. Moore was seen and examined at bedside. He continues to have good appetite. He is eating more. He is having bowel movements. He is on room air FiO2, 98% oxygen saturation. REVIEW OF SYSTEMS: No headaches, no bleeding. OBJECTIVE: VITAL SIGNS: Afebrile, vital signs noted per electronic record. GENERAL: In no acute distress, alert and calm. HEENT: Normocephalic, atraumatic. NECK: Supple. Throat midline. LUNGS: Bilateral air entry, clear. CARDIOVASCULAR: S1, S2. No murmurs, rubs or gallops. ABDOMEN: Soft, nontender. EXTREMITIES: No clubbing, no cyanosis. There is no edema. INTEGUMENT: No rash, no purpura. LABS: No new updates. IMPRESSION AND PLAN 1. Severe urinary tract infection, extended spectrum beta-lactamase Escherichia coli. 2. Moderate protein-calorie malnutrition. 3. Possible non-ST elevation myocardial infarction with cardiac catheterization showing 20%-30% coronary disease pattern. 4. Hypertension. 5. Gastroesophageal reflux disease. 6. Prediabetes/hyperglycemia, on metformin Continue IV antibiotics. Continue followup glucose fingerstick and ensure appropriate control, which so far has been very good. Continue follow blood pressure and this is also has good control. We will talk to insurance and try to get authorization to complete his IV antibiotics at the facility. Job#: [id number]
[2017-10-18] MEDS: PIPER-TAZ 3.375 GM 50 ML IV SCH ×3 (01:29→17:30)
--- NOTE | 2017-10-18 01:40 | Progress Note ---
DATE: Mr. Moore is doing better. He has no new complaints. He wants to see his option about where to finish the IV antibiotic either at the skilled care or home depending which was cheaper, but overall he is doing good. PHYSICAL EXAMINATION: GENERAL: He is currently alert and oriented, does not seem to be in acute distress. VITAL SIGNS: Stable, afebrile. Temperature 97.3, heart rate 60, respirations 16, blood pressure 118/67, O2 sat 95%. He is off walking in room. HEENT: Normocephalic, does not appear icteric. PERRLA. NECK: Supple. No JVD, no lymphadenopathy, no thyromegaly. CHEST: Clear bilaterally. HEART: S1 and S2. No S3, S4, or murmur. ABDOMEN: Soft. Bowel sounds present. No tenderness, no hepatosplenomegaly. EXTREMITIES: No edema. SKIN: No rash. CURRENT MEDICATIONS: He is on Zosyn and prednisone. LABORATORY DATA: Reviewed. Chart reviewed. IMPRESSION: 1. Sepsis, pyelonephritis, Escherichia coli extended-spectrum beta-lactamase, to finish 14 days of Zosyn. Tomorrow, will discuss with case management what is the best option. 2. Chronic obstructive pulmonary disease. 3. Hypertension. 4. History of smoking. 5. Coronary artery disease. His option will be either Invanz 1 g daily or meropenem 500 intravenously q.8h. to go home with. Will discuss with case management tomorrow. Job#: [id number]
[2017-10-18] MEDS: IPRATROPIUM BROMIDE 0.02% 2.5 ML NEB NEB SCH ×2 (07:10→19:52)
[2017-10-18] MEDS ORDERED: SODIUM CHLORIDE 0.9% 250ML 250 ML ONE (08:11)
[2017-10-18] MEDS ORDERED: PREDNISONE 20 MG TAB PO SCH (09:00)
[2017-10-18] MEDS: METOPROLOL TARTRATE 25 MG TAB PO SCH ×2 (09:37→17:20)
[2017-10-18] MEDS: FAMOTIDINE 20 MG/2 ML VIAL IV SCH ×2 (09:37→17:20)
[2017-10-18] MEDS: ASPIRIN 325 MG TAB PO SCH (09:37)
--- NOTE | 2017-10-18 11:22 | Progress Note ---
DATE: October 18, 2017 CARDIOLOGY PROGRESS NOTE SUBJECTIVE: The patient denies chest pain or shortness of breath. OBJECTIVE VITAL SIGNS: Temperature 99.4 degrees, pulse 56, respiratory rate 16, blood pressure 152/75, oxygen saturation 98% on room air. GENERAL: Awake, alert, in no acute distress. LUNGS: Clear to auscultation bilaterally. No wheezes or crackles. CARDIOVASCULAR: Normal rate, regular rhythm. No murmur. Normal S1 and S2. ABDOMEN: Soft, nontender. EXTREMITIES: No edema. CARDIAC MEDICATIONS 1. Metoprolol tartrate 50 mg p.o. b.i.d. 2. Aspirin 325 mg p.o. daily. 3. Atorvastatin 20 mg p.o. nightly. LABS: None today. IMPRESSION 1. Mild coronary artery disease. 2. Type-2 myocardial infarction. 3. Extended spectrum beta lactamase Escherichia coli. 4. Chronic obstructive pulmonary disease exacerbation. 5. Hypertension, uncontrolled. 6. Tobacco abuse. RECOMMENDATIONS: The patient's blood pressure is not controlled. Resume home lisinopril. Discussed smoking cessation with the patient, who agrees. Risk factor modification was discussed with the patient. Thank you for this consult. We will continue to follow. Job#: [id number]
[2017-10-18] MEDS: LISINOPRIL 10 MG TAB PO SCH (12:07)
[2017-10-18] MEDS: ATORVASTATIN 20 MG TAB PO SCH (20:51)
--- NOTE | 2017-10-18 21:39 | Progress Note ---
DATE: October 18, 2017 INTERNAL MEDICINE PROGRESS NOTE SUBJECTIVE: Mr. Moore was seen and examined at bedside. He continues to have good eating ability. He is having bowel movements. He is on room air FiO2. He is having less pains to his back. REVIEW OF SYSTEMS: No headaches, no double vision. OBJECTIVE: VITAL SIGNS: Afebrile, vital signs noted per electronic record. GENERAL: In no acute distress, alert and calm. HEENT: Normocephalic, atraumatic. NECK: Supple. Throat midline. LUNGS: Bilateral air entry, clear. CARDIOVASCULAR: S1, S2. No murmurs, rubs, or gallops. ABDOMEN: Soft, nontender. EXTREMITIES: No clubbing, no cyanosis, there is no edema. INTEGUMENT: No rash, no purpura. IMPRESSION AND PLAN: 1. Urinary tract infection. 2. Severe sepsis, improving. 3. Myocardial infarction. 4. Urinary tract infection with extended-spectrum beta-lactamase Escherichia coli. 5. Chronic obstructive pulmonary disease with exacerbation. 6. Hypertension. 7. Chronic smoking. 8. Gastroesophageal reflux disease. 9. Prediabetes, on metformin. Continue to control blood sugar. Will continue weaning down the prednisone and will down again. Continue to mobilize the patient. Await transfer to outside facility to continue and finish his intravenous antibiotics for his extended-spectrum beta-lactamase organism there. Will continue to follow up closely. Job#: [id number]
[2017-10-19] VITALS (8 sets, daily range): BP systolic 90–140; BP diastolic 56–73
[2017-10-19] MEDS: PIPER-TAZ 3.375 GM 50 ML IV SCH ×3 (01:56→18:00)
[2017-10-19] MEDS: IPRATROPIUM BROMIDE 0.02% 2.5 ML NEB NEB SCH ×2 (07:12→20:00)
[2017-10-19] MEDS: LISINOPRIL 10 MG TAB PO SCH (09:54)
[2017-10-19] MEDS: FAMOTIDINE 20 MG/2 ML VIAL IV SCH ×2 (09:54→17:30)
[2017-10-19] MEDS: METOPROLOL TARTRATE 25 MG TAB PO SCH ×2 (09:54→17:30)
[2017-10-19] MEDS: PREDNISONE 10 MG TAB PO SCH (09:54)
[2017-10-19] MEDS: ASPIRIN 325 MG TAB PO SCH (09:54)
--- NOTE | 2017-10-19 15:14 | Progress Note ---
DATE: October 19, 2017 CARDIOLOGY PROGRESS NOTE SUBJECTIVE: Patient denies chest pain or shortness of breath. OBJECTIVE VITAL SIGNS: Temperature 97.8 degrees, pulse 59, respiratory rate 17, blood pressure 107/63, oxygen saturation 98% on room air. GENERAL: Awake, alert, in no acute distress. LUNGS: Clear to auscultation bilaterally. No wheezes or crackles. CARDIOVASCULAR: Normal rate, regular rhythm. No murmur. Normal S1 and S2. ABDOMEN: Soft, nontender. EXTREMITIES: No edema. CARDIAC MEDICATIONS 1. Lisinopril 10 mg p.o. daily. 2. Metoprolol tartrate 50 mg p.o. b.i.d. 3. Aspirin 325 mg p.o. daily. 4. Atorvastatin 20 mg p.o. nightly. LABS: None today. IMPRESSION 1. Mild coronary artery disease. 2. Type 2 myocardial infarction. 3. Extended-spectrum beta-lactamase Escherichia coli. 4. Chronic obstructive pulmonary disease exacerbation. 5. Hypertension. 6. Tobacco abuse. RECOMMENDATIONS: Continue the current cardiac medications. Smoking cessation has been discussed with the patient. No further cardiac evaluation is needed at this time. Emphasized the importance of risk-factor modification. Please have the patient follow up with us in the office in 2 weeks. Thank you for this consult. We will continue to follow. Job#: [id number] [place]
[2017-10-19] MEDS: ATORVASTATIN 20 MG TAB PO SCH (20:15)
--- NOTE | 2017-10-19 22:15 | Progress Note ---
DATE: October 19, 2017 INTERNAL MEDICINE PROGRESS NOTE SUBJECTIVE: Mr. Moore was seen and examined at bedside. He continues to have steady progress. He is walking around. He is able to tolerate his antibiotics, however. 98% oxygen saturation on room air. Patient was not able to go to courtyards. REVIEW OF SYSTEMS: No headaches, no rash. OBJECTIVE: VITAL SIGNS: Afebrile, vital signs noted per electronic record. GENERAL: In no acute distress, alert and calm. HEENT: Normocephalic, atraumatic. NECK: Supple. Throat midline. LUNGS: Bilateral air entry, mostly clear. CARDIOVASCULAR: S1, S2. No murmurs, rubs, or gallops. ABDOMEN: Soft, nontender. EXTREMITIES: No clubbing, no cyanosis, no edema. INTEGUMENT: No rash, no purpura. IMPRESSION AND PLAN: 1. Extended-spectrum beta-lactamase urinary tract infection. 2. Weakness, resolving. 3. Chronic obstructive pulmonary disease with exacerbation. 4. Myocardial infarction. 5. Hypertension, chronic smoking, gastroesophageal reflux disease, prediabetes. Continue current treatment at this time. Will follow along closely. We will wait transfer to in-network facility. Continue to allow patient to mobilize. Wean prednisone further. Job#: [id number]
[2017-10-20] VITALS (8 sets, daily range): BP systolic 102–121; BP diastolic 62–64
[2017-10-20] MEDS: PIPER-TAZ 3.375 GM 50 ML IV SCH ×3 (01:25→17:09)
[2017-10-20] MEDS: IPRATROPIUM BROMIDE 0.02% 2.5 ML NEB NEB SCH ×2 (07:05→19:00)
[2017-10-20] MEDS: METOPROLOL TARTRATE 25 MG TAB PO SCH ×2 (09:20→17:10)
[2017-10-20] MEDS: ASPIRIN 325 MG TAB PO SCH (09:20)
[2017-10-20] MEDS: LISINOPRIL 10 MG TAB PO SCH (09:20)
[2017-10-20] MEDS: PREDNISONE 10 MG TAB PO SCH (09:20)
[2017-10-20] MEDS: FAMOTIDINE 20 MG/2 ML VIAL IV SCH (09:20)
--- NOTE | 2017-10-20 15:01 | Progress Note ---
DATE: October 20, 2017 CARDIOLOGY PROGRESS NOTE SUBJECTIVE: The patient denies chest pain or shortness of breath. OBJECTIVE VITALS: Temperature 97.1 degrees, pulse 55, respiratory rate 20, blood pressure 116/62, oxygen saturation 98% on 2 L nasal cannula. GENERAL: Awake, alert and in no acute distress. LUNGS: Clear to auscultation bilaterally. No wheezes or crackles. CARDIOVASCULAR: Normal rate. Regular rhythm. No murmurs. Normal S1 and S2. ABDOMEN: Soft and nontender. EXTREMITIES: No edema. CARDIAC MEDICATIONS 1. Lisinopril 10 mg p.o. daily. 2. Metoprolol tartrate 50 mg p.o. b.i.d. 3. Aspirin 325 mg p.o. daily. 4. Atorvastatin 20 mg p.o. at bedtime. LABS: None today. IMPRESSION 1. Mild coronary artery disease. 2. Type 2 myocardial infarction. 3. Extended spectrum beta-lactamase Escherichia coli. 4. Chronic obstructive pulmonary disease exacerbation. 5. Hypertension. 6. Tobacco abuse. RECOMMENDATIONS: Continue current cardiac medications. Smoking cessation has been discussed with the patient. No further cardiac evaluation is indicated at this time. Emphasized the importance of risk factor modification. The patient is pending acceptance to [facility]. Please have the patient follow up with us in the office in 2 weeks. Thank you for this consult. We will continue to follow. Job#: [id number] [facility]
[2017-10-20] MEDS: ATORVASTATIN 20 MG TAB PO SCH (21:42)
[2017-10-21] VITALS: BP 122/64
--- NOTE | 2017-10-21 02:29 | Progress Note ---
DATE: October 20, 2017 INTERNAL MEDICINE PROGRESS NOTE SUBJECTIVE: Mr. Moore was seen and examined at bedside. He continues to be able to walk around. He is tolerating antibiotics still. It turns out that he was denied from senior care facility. Patient is being considered for home antibiotics, although it is not setup yet. Patient is eating well. REVIEW OF SYSTEMS: No headaches, no rash. OBJECTIVE: VITAL SIGNS: Afebrile, vital signs noted per electronic record. GENERAL: In no acute distress, alert and calm. HEENT: Normocephalic, atraumatic. NECK: Supple. Throat midline. LUNGS: Bilateral air entry, few rhonchi. CARDIOVASCULAR: S1, S2. No murmurs, rubs, or gallops. ABDOMEN: Soft, nontender. EXTREMITIES: No clubbing, no cyanosis, no edema. INTEGUMENT: No rash, no purpura. IMPRESSION AND PLAN: 1. Extended-spectrum beta-lactamase Escherichia coli urinary tract infection. 2. Chronic obstructive pulmonary disease. 3. Hypoxemia. 4. Weakness, resolving. 5. Myocardial infarction. 6. Hypertension, chronic smoker, gastroesophageal reflux disease, prediabetes. Will continue to work with case management so patient gets outpatient antibiotics. Patient remains on prednisone at this time and will continue to wean it back towards home dosing. Continue bronchodilators. still going. Follow up on intravenous antibiotics. Job#: [id number]
[2017-10-21] MEDS: PIPER-TAZ 3.375 GM 50 ML IV SCH ×2 (03:33→10:02)
[2017-10-21] MEDS ORDERED: SODIUM CHLORIDE 0.9% 250ML 250 ML ONE (03:56)
[2017-10-21 04:00] VITALS: BP 102/56
[2017-10-21] MEDS: IPRATROPIUM BROMIDE 0.02% 2.5 ML NEB NEB SCH (07:00)
[2017-10-21] MEDS ORDERED: PANTOPRAZOLE SOD 40 MG TABEC PO SCH (07:30)
[2017-10-21 08:46] VITALS: BP 102/56
[2017-10-21 08:47] VITALS: BP 93/54
[2017-10-21 08:54] VITALS: BP 93/54
[2017-10-21] MEDS: METOPROLOL TARTRATE 25 MG TAB PO SCH (09:00)
[2017-10-21] MEDS: LISINOPRIL 10 MG TAB PO SCH (09:00)
[2017-10-21] MEDS: ASPIRIN 325 MG TAB PO SCH (09:59)
[2017-10-21] MEDS: PREDNISONE 10 MG TAB PO SCH (09:59)
[2017-10-21] MEDS ORDERED: ASPIRIN325 MG PO (11:17)
[2017-10-21] MEDS ORDERED: CIPROFLOXACIN500 MG PO (11:17)
[2017-10-21] MEDS ORDERED: LIPITOR20 MG PO (11:17)
--- NOTE | 2017-10-21 11:46 | Progress Note ---
DATE: October 21, 2017 CARDIOLOGY PROGRESS NOTE SUBJECTIVE: The patient denies chest pain or shortness of breath. OBJECTIVE VITALS: Temperature 96.9 degrees, pulse 67, respiratory rate 20, blood pressure 93/54, oxygen saturation 98% on room air. GENERAL: Awake, alert and in no acute distress. LUNGS: Clear to auscultation bilaterally. No wheezes or crackles. CARDIOVASCULAR: Normal rate. Regular rhythm. No murmurs. Normal S1 and S2. ABDOMEN: Soft and nontender. EXTREMITIES: No edema. CARDIAC MEDICATIONS 1. Aspirin 325 mg p.o. daily. 2. Atorvastatin 20 mg p.o. at bedtime. 3. Lisinopril 10 mg p.o. daily. 4. Metoprolol tartrate 50 mg p.o. b.i.d. LABS: None today. IMPRESSION 1. Extended spectrum beta lactamase Escherichia coli. 2. Mild coronary artery disease. 3. Type-2 myocardial infarction. 4. Chronic obstructive pulmonary disease exacerbation. 5. Hypertension. 6. Tobacco abuse. RECOMMENDATIONS: Continue current cardiac medications. Smoking cessation has been discussed with the patient. No further cardiac evaluation is indicated at this time. Emphasized the importance of risk factor modification. The patient is pending arrangement of home IV antibiotics. Please have the patient follow up with us 2 weeks after discharge. Thank you for this consult. We will continue to follow. Job#: [id number]
[2017-10-21 12:45] VITALS: BP 109/65
--- NOTE | 2017-10-22 04:21 | Discharge Summary ---
PRIMARY CARE DOCTOR: Patric Hannah MD This is coverage for hospitalist, Dr. Yaya Guevara PRIMARY DIAGNOSIS: Extended spectrum beta-lactamase urinary tract infection. SECONDARY DIAGNOSES 1. [id number] myocardial infarction. 2. Hypertension. 3. Weakness. 4. Chronic obstructive pulmonary disease with exacerbation. DIET AT DISCHARGE: Cardiac diet. ACTIVITY AT DISCHARGE: As tolerated. MEDICATIONS AT DISCHARGE: See medication administration record for details. HOSPITAL COURSE: Mr. Moore was admitted with shortness of breath and chest pain and hypoxemia. He was found to have small troponin elevations consistent with NE. The patient had care in the hospital where evaluations were done. Cardiac catheterization performed showed only mild mostly nonobstructive CAD. He grew E. coli ESBL, greater than 100,000 on culture. He was recommended for antibiotics. However, due to placement issues, he received IV antibiotics while he was in the hospital. Eventually, he was allowed for discharge to outpatient followup. CONSULTANTS: Dr. Brand, Dr. Vigil, Dr. Patric Hannah. SLY RUIZ MD Job#: [id number]
== END 2017-10-21 13:05 | disposition home or self-care (01) | DRG 871 ==
LOC: ER 02:46 → IMCU 04:21
PROVIDERS: ADMIT Internal Medicine; ATTEND Internal Medicine
PROC: 02HV33Z Insertion of Infusion Device into Superior Vena Cava, Percutaneous Approach (ICD-10-PCS; 2017-10-14)
PROC: 4A023N7 Measurement of Cardiac Sampling and Pressure, Left Heart, Percutaneous Approach (ICD-10-PCS; principal; 2017-10-15)
PROC: B2151ZZ Fluoroscopy of Left Heart using Low Osmolar Contrast (ICD-10-PCS; 2017-10-15)
PROC: B2111ZZ Fluoroscopy of Multiple Coronary Arteries using Low Osmolar Contrast (ICD-10-PCS; 2017-10-15)
DX: A41.51 Sepsis due to Escherichia coli [E. coli] (principal); I21.4 Non-ST elevation (NSTEMI) myocardial infarction; D69.6 Thrombocytopenia, unspecified; N10 Acute pyelonephritis; J44.0 Chronic obstructive pulmonary disease with (acute) lower respiratory infection; J44.1 Chronic obstructive pulmonary disease with (acute) exacerbation; E44.0 Moderate protein-calorie malnutrition; J20.9 Acute bronchitis, unspecified; E87.6 Hypokalemia; I10 Essential (primary) hypertension; Z16.12 Extended spectrum beta lactamase (ESBL) resistance; R53.81 Other malaise; B96.20 Unspecified Escherichia coli [E. coli] as the cause of diseases classified elsewhere; I25.10 Atherosclerotic heart disease of native coronary artery without angina pectoris; K21.9 Gastro-esophageal reflux disease without esophagitis; R09.02 Hypoxemia
CPT/HCPCS: 36140; 36415; 36569; 71045; 76705; 77002; 78227; 80048; 80053; 80061; 80076; 81001; 82550; 82553; 83518; 83605; 83690; 83735; 83880; 84443; 84484; 85025; 85610; 85730; 87040; 87070; 87086; 87186; 87400; 93005; 93306; 93458; 94640; 96361; 96367; 96374; 96376; 99284; A9537; C1769; J0456; J0696; J1644; J2001; J2060; J2250; J2270; J2543; J2805; J2930; J7030; J7050; Q9967

== ENCOUNTER 2018-08-01 13:51 | Observation (INO) | payer BC ==
[~2018-08-01] VITALS: Ht 182.9 cm; Wt 80.8 kg
[~2018-08-01 13:51] MED LIST: ASPIRIN325 MG PO; CIPROFLOXACIN500 MG PO; LIPITOR20 MG PO; LISINOPRIL10 MG PO; PRILOSEC OTC20 MG PO; TOPROL XL100 MG PO
--- OUTSIDE RECORDS SUMMARY | 2018-08-01 13:54 | XMS REPORT | Clinical Summary ---
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 Active metoprolol succinate XL Take 100 mg 0 (TOPROL-XL) 100 mg 24 hr by mouth tablet every morning. Active atorvastatin (LIPITOR) 20 Take 20 mg by 0 MG tablet mouth every evening. Default OP ins Active aspirin 325 MG buffered Take 325 mg 0 tablet by mouth every morning. Active Problems Problem Noted Date Chest pain 11/25/2017 Encounters Care Team Description Date Type Specialty Gagan-Tracey Allred MD Other chest pain (Primary Dx) 11/25/2017 [facility] General Surgery - Encounter 11/26/2017 after 07/31/2017 Social History Date Tobacco Use Types Packs/Day Years Used Started: 03/28/1977 Current Every Day Smoker Cigarettes 0.5 15 Tobacco Cessation: Ready to Quit: Yes; Counseling Given: Yes Alcohol Use Drinks/Week oz/Week Comments Yes 35 Cans of 21.0 beer Sex Assigned at Date Recorded Not on file Industry Job Start Date Occupation Not on file Not on file Not on file Travel End Travel History Travel Start No recent travel history available. Last Filed Vital Signs Time Taken Vital Sign Reading 11/26/2017 11:23 AM CDT Blood Pressure 108/55 11/26/2017 11:23 AM CDT Pulse 64 11/26/2017 11:23 AM CDT Temperature 36.5 C (97.7 F) 11/26/2017 11:23 AM CDT Respiratory Rate 19 11/26/2017 11:23 AM CDT Oxygen Saturation 97% - Inhaled Oxygen - Concentration 11/26/2017 6:00 AM CDT Weight 73.5 kg (162 lb 1 oz) 11/25/2017 4:05 PM CDT Height 182.9 cm (6') 11/26/2017 6:00 AM CDT Body Mass Index 21.98 Plan of Treatment Health Maintenance Due Date Last Done Comments COLON CANCER SCREENING 2009 SHINGLES VACCINES (1 of 2009 2) INFLUENZA VACCINE 02/16/2018 Procedures Comments Procedure Name Priority Date/Time Associated Diagnosis TROPONIN Routine 11/26/2017 10:14 AM CDT LIPID PANEL Routine 11/26/2017 5:48 AM CDT THYROID STIMULATING Routine 11/26/2017 HORMONE 5:48 AM CDT TROPONIN Timed 11/25/2017 6:15 PM CDT XR CHEST 2 VW Routine 11/25/2017 4:17 PM CDT ECHOCARDIOGRAM 2D Routine 11/25/2017 COMPLETE W MMODE SPECTRAL 3:40 PM CDT COLOR DOPPLER ([id number]) ZZESTIMATED GFR Routine 11/25/2017 2:58 PM CDT THYROID STIMULATING Routine 11/25/2017 HORMONE 2:58 PM CDT MAGNESIUM LEVEL Routine 11/25/2017 2:58 PM CDT LIPID PANEL Routine 11/25/2017 2:58 PM CDT COMPREHENSIVE METABOLIC Routine 11/25/2017 PANEL 2:58 PM CDT CREATINE KINASE, TOTAL Routine 11/25/2017 (CPK) 2:58 PM CDT B NATRIURETIC PEPTIDE Routine 11/25/2017 2:58 PM CDT PROTHROMBIN TIME WITH INR Routine 11/25/2017 2:58 PM CDT HC COMPLETE BLD COUNT Routine 11/25/2017 W/AUTO DIFF 2:58 PM CDT ECG 12-LEAD Routine 11/25/2017 2:50 PM CDT after 07/31/2017 Results * Troponin (11/26/2017 10:14 AM CDT) Only the most recent of 2 results within the time period is included. Troponin <0.300 0.000 - 0.300 ng/mL [facility] DEPARTMENT OF Comment: PATHOLOGY AND 0.30 - 1.49 GENOMIC MEDICINE ng/mlMay indicate increased risk of acute coronary syndrome. >=1.5 ng/ml Consistent with acute myocardial infarction. The diagnostic value of a single normal or non-diagnostic result is questionable.Serial samples at 2-6 hour intervals are required to rule out acute myocardial injury. Specimen Plasma specimen Performing Organization Address [facility]ode Phone Number [address] [place] [address] PATHOLOGY AND [facility] * Thyroid stimulating hormone (11/26/2017 5:48 AM CDT) Only the most recent of 2 results within the time period is included. TSH 1.22 0.27 - 4.20 uIU/mL [facility] DEPARTMENT OF PATHOLOGY AND [facility] Specimen Plasma specimen Performing Organization Address City/[facility] Cent[facility]ode Phone Number [address] [place] [address] PATHOLOGY AND [facility] * Lipid panel (11/26/2017 5:48 AM CDT) Only the most recent of 2 results within the time period is included. Cholesterol 92 <200 mg/dL [facility] DEPARTMENT OF PATHOLOGY AND GENOMIC MEDICINE Triglycerides 83 <150 mg/dL [facility] DEPARTMENT OF PATHOLOGY AND GENOMIC MEDICINE HDL cholesterol 43 >40 mg/dL [facility] DEPARTMENT OF PATHOLOGY AND GENOMIC MEDICINE LDL cholesterol 38Comment: Result obtained by <100 mg/dL [facility] DEPARTMENT OF direct LDL measurement PATHOLOGY AND [facility] Lipid panel SeeBelow [facility] DEPARTMENT OF interpretation Comment: PATHOLOGY AND Total Cholesterol GENOMIC MEDICINE (mg/dL) <200 Desirable 200-239Borderline -high >=240High Triglycerides (mg/dL) <150 Normal 150-199Borderline -high 200-499High >=500Very high HDL Cholesterol (mg/dL) <40Low (male) <40Low (female) LDL Cholesterol (mg/dL) <100 Optimal 100-129Near or above optimal 130-159Borderline -high 160-189High >=190Very high Risk Catergories that modify LDL goals. Risk Catergories LDL goal (mg/dL) CHD and CHD risk equivalent<100 (10-year risk >20%) Multiple (2+) risk factors <130 (10-year risk=<20%) 0-1 risk factors <160 (<10-year risk) Defining levels of lipids in metabolic syndrome Triglycerides >=150 mg/dL HDL Cholesterol Men <40 mg/dL Women <40 mg/dL Non-HDL cholesterol is a second target for therapy in persons with high triglycerides (>=200 mg/dL) Specimen Plasma specimen Performing Organization Address [facility] Centercomn Phone Number [facility] [address] [place] [address] PATHOLOGY AND GENOMIC MEDICINE * XR Chest 2 Vw (11/25/2017 4:17 PM CDT) Narrative Performed At Examination:XR CHEST 2 VW [facility] Clinical History: Chest Pain Comparison: December 10, 2009. Technique: Frontal and lateral views of the chest were obtained. Findings: Lungs and pleural surfaces are clear. Cardiomediastinal silhouette and pulmonary vascularity are within normal limits. Multiple old right rib fractures are again seen. Impression: No active cardiopulmonary disease identified. [id number] Procedure Note Hm Interface, Radiology Results Incoming - 11/25/2017 4:22 PM CDT Examination: XR CHEST 2 VW Clinical History: Chest Pain Comparison: December 10, 2009. Technique: Frontal and lateral views of the chest were obtained. Findings: Lungs and pleural surfaces are clear. Cardiomediastinal silhouette and pulmonary vascularity are within normal limits. Multiple old right rib fractures are again seen. Impression: No active cardiopulmonary disease identified. [id number] Performing Organization Address [facility] Centercode Phone Number [facility] [address] [place] [address] * Echocardiogram complete w contrast and 3D if needed (11/25/2017 3:40 PM CDT) Velocity Ratio (V1/V2) 0.65 m/s [facility] IVS,d 0.75 0.6 - 1.2 cm [facility] Ao root annulus 2.81 cm [facility] EF 59.19 % [facility] LA volume 55.0 cm3 [facility] LVPWD,d 0.80 cm [facility] AoV Mean PG 3.99 mmHg [facility] AV LVOT peak gradient 3.78 mmHg [facility] MV valve area p 1/2 4.04 cm2 [facility] method E/A ratio 1.69 [facility] E wave decelartion time 206.02 msec [facility] LVOT Diam,S 2.12 cm [facility] LVOT area 3.53 cm2 [facility] LVOT Vmax 0.97 m/s [facility] LVOT VTI 0.21 m [facility] AoV Peak PG 8.85 mmHg [facility] MV Peak E Sarthak 0.71 m/s [facility] MV stenosis pressure 1/2 54.52 ms [facility] time MV Peak A Sarthak 0.42 m/s [facility] LV Vol,s A2C 28.11 mL [facility] LV Vol,d A2C 69.89 mL [facility] AoV Area, Vmax 2.30 cm2 [facility] AoV Area, VTI 2.33 cm2 [facility] AoV Vmax 1.49 m/s [facility] LA Area d A4C 33 cm2 [facility] LV,d 4.21 cm [facility] LV,s 2.90 cm [facility] LV Vol,d A4C 65.08 ml [facility] LV Vol,s A4C 29.20 ml [facility] RVSP (TR) 35.91 mmHg [facility] TR Vpeak 2.78 mm/s [facility] MV E A ratio 1.68 mmHg [facility] RA pressure 5.00 mmHg [facility] TR pk grad 30.91 mmHg [facility] RVSP 35.91 mmHg [facility] LV SYS VOL 32.30 ml [facility] LV DEL REAL VOL 79.14 ml [facility] LA diam s 3.50 cm [facility] LA Vol MOD A4C 32.64 ml [facility] LV SV Teich 2D 46.84 ml [facility] LVOT SI 37.06 ml/m2 [facility] AoV Cusp sep 1.63 [facility] Aortic Root 2.80 cm [facility] AoV Vmn 0.91 [facility] IVS s 2D 1.05 [facility] LA Ao Ratio Mmode 1.26 [facility] D E excurs 1.70 [facility] E f slope 0.08 [facility] E prime lat 0.15 [facility] E rinku sept 0.11 [facility] PV acc T slope 3.20 [facility] PV AT 173.01 msec [facility] AoV VTI 0.32 m [facility] LV EF,A2C 59.78 % [facility] LV EF,A4C 55.13 % [facility] LV EF,BP 58.02 % [facility] [place],d A2C 8.05 cm [facility] [place],d A4C 7.08 cm [facility] [place],s A2C 6.45 cm [facility] [place],s A4C 5.78 cm [facility] LV SV,A2C 41.78 % [facility] LV SV,A4C 35.88 % [facility] LV Vol,d BP 71.78 ml [facility] LV Vol,s BP 30.13 nl [facility] LVOT Vmn 0.59 [facility] LVOT mean grad 1.63 mmHg [facility] LVPW s PLAX 1.05 cm [facility] MV Decel slope 3.43 m/s2 [facility] Narrative Performed At [facility] The left ventricle chamber size is normal. No pericardial effusion There is mild left ventricular Left Ventricular ejection fraction is 55 - 60%. Performing Organization Address City/[facility] Centercode Phone Number [facility] [address] [place] [address] * Estimated GFR (11/25/2017 2:58 PM CDT) GFR Non Af Amer >90 mL/min/1.73 m2 [facility] DEPARTMENT OF PATHOLOGY AND GENOMIC MEDICINE GFR Af Amer >90 mL/min/1.73 m2 [facility] DEPARTMENT OF Comment: PATHOLOGY AND Chronic kidney disease: <60 GENOMIC MEDICINE mL/min/1.73m2 Kidney failure: <15 mL/min/1.73m2 The estimated GFR is calculated from the IDMS-traceable Modification of Diet in Renal Disease Equation. The accuracy of the calculation is poor when the creatinine is normal. Calculated values >90 mL/min/1.73m2 are not reported. This equation has not been validated in children (<18 years), women, the elderly (>70 years), or ethnic groups other than Caucasians and Americans. Specimen Plasma specimen Performing Organization Address City/[facility]/Zipcode Phone Number [address] [place] [address] PATHOLOGY AND GENOMIC MEDICINE * Prothrombin time with INR (11/25/2017 2:58 PM CDT) Prothrombin time 14.3 12.0 - 15.0 sec [facility] DEPARTMENT OF PATHOLOGY AND GENOMIC MEDICINE INR 1.1 [facility] DEPARTMENT OF Comment: PATHOLOGY AND The International Normalized GENOMIC MEDICINE Ratio (INR) is a therapeutic monitoring tool for patients who are stable on oral anticoagulant therapy. An INR of 2.0-3.0 is suggested for deep vein thrombosis/pulmonary embolism. Specimen Blood Performing Organization Address City/State/Zipcode Phone Number [facility] [place] [address] [place] [address] PATHOLOGY AND GENOMIC MEDICINE * CBC with platelet and differential (11/25/2017 2:58 PM CDT) WBC 8.64 4.50 - 11.00 k/uL [facility] DEPARTMENT OF PATHOLOGY AND GENOMIC MEDICINE RBC 4.40 4.40 - 6.00 m/uL [facility] DEPARTMENT OF PATHOLOGY AND GENOMIC MEDICINE HGB 13.7 (L) 14.0 - 18.0 g/dL [facility] DEPARTMENT OF PATHOLOGY AND GENOMIC MEDICINE HCT 40.8 (L) 41.0 - 51.0 % [facility] DEPARTMENT OF PATHOLOGY AND GENOMIC MEDICINE MCV 92.7 82.0 - 100.0 fL [facility] DEPARTMENT OF PATHOLOGY AND GENOMIC MEDICINE MCH 31.1 27.0 - 34.0 pg [facility] DEPARTMENT OF PATHOLOGY AND GENOMIC MEDICINE MCHC 33.6 31.0 - 37.0 g/dL [facility] DEPARTMENT OF PATHOLOGY AND GENOMIC MEDICINE RDW - SD 49.5 37.0 - 55.0 fL [facility] DEPARTMENT OF PATHOLOGY AND GENOMIC MEDICINE MPV 11.4 8.8 - 13.2 fL [facility] DEPARTMENT OF PATHOLOGY AND GENOMIC MEDICINE Platelet count 212 150 - 400 k/uL [facility] DEPARTMENT OF PATHOLOGY AND GENOMIC MEDICINE Nucleated RBC 0.00 /100 WBC [facility] DEPARTMENT OF PATHOLOGY AND GENOMIC MEDICINE Neutrophils 69.0 39.0 - 69.0 % [facility] DEPARTMENT OF PATHOLOGY AND GENOMIC MEDICINE Lymphocytes 20.7 (L) 25.0 - 45.0 % [facility] DEPARTMENT OF PATHOLOGY AND GENOMIC MEDICINE Monocytes 8.0 0.0 - 10.0 % [facility] DEPARTMENT OF PATHOLOGY AND GENOMIC MEDICINE Eosinophils 1.5 0.0 - 5.0 % [facility] DEPARTMENT OF PATHOLOGY AND GENOMIC MEDICINE Basophils 0.6 0.0 - 1.0 % [facility] DEPARTMENT OF PATHOLOGY AND GENOMIC MEDICINE Specimen Blood Performing Organization Address [facility]comn Phone Number [address] [place] [address] PATHOLOGY AND GENOMIC MEDICINE * B natriuretic peptide (11/25/2017 2:58 PM CDT) BNP 57 0 - 100 pg/mL [facility] DEPARTMENT OF PATHOLOGY AND GENOMIC MEDICINE Specimen Blood Performing Organization Address [facility] Phone Number [address] [place] [address] PATHOLOGY AND GENOMIC MEDICINE * Magnesium level (11/25/2017 2:58 PM CDT) Magnesium 2.0 1.6 - 2.6 mg/dL [facility] DEPARTMENT OF PATHOLOGY AND GENOMIC MEDICINE Specimen Plasma specimen Performing Organization Address [facility] Phone Number [address] [place] [address] PATHOLOGY AND GENOMIC [facility] * Creatine kinase, total (CPK) (11/25/2017 2:58 PM CDT) Creatine kinase 115 39 - 308 U/L [facility] DEPARTMENT OF PATHOLOGY AND GENOMIC MEDICINE Specimen Plasma specimen Performing Organization Address [facility] Phone Number [address] [place] [address] PATHOLOGY AND [facility] * Comprehensive metabolic panel (11/25/2017 2:58 PM CDT) Sodium 136 135 - 148 mEq/L [facility] DEPARTMENT OF PATHOLOGY AND GENOMIC MEDICINE Potassium 4.7 3.5 - 5.0 mEq/L [facility] DEPARTMENT OF PATHOLOGY AND GENOMIC MEDICINE Chloride 102 98 - 112 mEq/L [facility] DEPARTMENT OF PATHOLOGY AND GENOMIC MEDICINE CO2 22 (L) 24 - 31 mEq/L [facility] DEPARTMENT OF PATHOLOGY AND GENOMIC MEDICINE Anion gap 12 7 - 15 mEq/L [facility] DEPARTMENT OF Comment: PATHOLOGY AND Starting from October [facility] , anion gap calculation no longer incorporates potassium. Please note the change. BUN 13 6 - 20 mg/dL [facility] DEPARTMENT OF PATHOLOGY AND GENOMIC MEDICINE Creatinine 0.6 (L) 0.7 - 1.2 mg/dL [facility] DEPARTMENT OF PATHOLOGY AND GENOMIC MEDICINE Glucose 105 (H) 65 - 99 mg/dL [facility] DEPARTMENT OF PATHOLOGY AND GENOMIC MEDICINE Calcium 8.8 8.3 - 10.2 mg/dL [facility] DEPARTMENT OF PATHOLOGY AND GENOMIC MEDICINE Protein 6.6 6.3 - 8.3 g/dL [facility] DEPARTMENT OF Comment: PATHOLOGY AND [place] GENOMIC MEDICINE 4.6-7.0 g/dL 1 week 4.4-7.6 g/dL 7 months-1year 5.1-7.3 g/dL 1-2 years5.6-7 .5 g/dL >3 years6.0-8 .0 g/dL 18-150 6.3-8.3 g/dL Albumin 4.1 3.5 - 5.0 g/dL [facility] DEPARTMENT OF PATHOLOGY AND GENOMIC MEDICINE A/G ratio 1.6 0.7 - 3.8 [facility] DEPARTMENT OF PATHOLOGY AND GENOMIC MEDICINE Alkaline phosphatase 74 40 - 129 U/L [facility] DEPARTMENT OF PATHOLOGY AND GENOMIC MEDICINE AST 29 10 - 50 U/L [facility] DEPARTMENT OF PATHOLOGY AND GENOMIC MEDICINE ALT 30 5 - 50 U/L [facility] DEPARTMENT OF PATHOLOGY AND GENOMIC MEDICINE Total bilirubin 0.5 0.0 - 1.2 mg/dL [facility] DEPARTMENT OF PATHOLOGY AND GENOMIC MEDICINE Specimen Plasma specimen Performing Organization Address City/[facility]/Zipcode Phone Number [facility] [address] [place] [address] PATHOLOGY AND GENOMIC MEDICINE * ECG 12 lead (11/25/2017 2:50 PM CDT) Ventricular rate 56 [facility] Atrial rate 56 [facility] ID interval 134 [facility] QRSD interval 90 [facility] QT interval 426 [facility] QTC interval 411 [facility] P axis 1 62 [facility] QRS axis 1 54 [facility] T wave axis 57 [facility] EKG impression Sinus bradycardia-Otherwise [facility] MUSE normal ECG-In automated comparison with ECG of 11-DEC-2009 08:57,-No significant change was found- Performing Organization Address City/[facility]/Zipcode Phone Number [facility] [employer] [address] [place] [address] after 07/31/2017 Insurance Payer Benefit Subscriber ID Type Phone Address Plan / Group BCBS BCBS OUT xxxxxxxxxxxxx PPO OF STATE Advance Directives Patient has advance care planning documents, and code status on file. For more i nformation, please contact: Zelalem Kuhn [address] [place] [address] Date Inactivated Comments Code Status Date Activated 11/26/2017 6:20 PM Full Code 11/25/2017 2:39 PM Code Status decision reached by: Patient
[2018-08-01] MEDS ORDERED: SODIUM CHLORIDE 0.9% 1000ML 1,000 ML IV STA (14:02)
[2018-08-01] MEDS ORDERED: ASPIRIN 81 MG CHEW TAB PO ONE ×2 (14:15→17:30)
[2018-08-01 14:42] LABS: BILIRUBIN,URINE NEGATIVE (NEGATIVE); CLARITY,URINE SL CLOUDY (CLEAR); COLOR,URINE YELLOW (YELLOW); KETONES,URINE NEGATIVE (NEGATIVE); LEUKOCYTE ESTERASE ,URINE TRACE (NEGATIVE); NITRITE,URINE POSITIVE (NEGATIVE); PROTEIN,URINE DIPSTICK NEGATIVE (NEGATIVE); URINE UROBILINOGEN 0.2 mg/dL (0.2 - 1)
--- NOTE | 2018-08-01 14:45 | NUR ---
X-RAY AT BEDSIDE FOR CXR AT THIS TIME
[2018-08-01 14:51] LABS: BASOPHILS # (AUTO) 0.1 (0.0-0.1); BASOPHILS % 0.8 % (0.0-1.0); EOSINOPHILS # (AUTO) 0.2 (0.0-0.4); EOSINOPHILS % 2.3 % (0.0-6.0); HEMATOCRIT 42.8 % (38.2-49.6); HEMOGLOBIN 13.9 g/dL (14.0-18.0); LYMPHOCYTES # (AUTO) 2.3 (1.0-3.2); LYMPHOCYTES % 25.3 % (18.0-39.1); MEAN CORPUSCULAR HEMOGLOBIN 30.6 pg (28-32); MEAN CORPUSCULAR HGB CONC 32.5 g/dL (31-35); MEAN CORPUSCULAR VOLUME 94.3 fL (81-99); MONOCYTES # (AUTO) 0.8 (0.2-0.8); MONOCYTES % 8.2 % (4.4-11.3); NEUTROPHILS # (AUTO) 5.8 (2.1-6.9); NEUTROPHILS % 62.9 % (38.7-80.0); PLATELET COUNT 216 x10e3/uL (140-360); RED BLOOD COUNT 4.54 x10e6/uL (4.3-5.7); RED CELL DISTRIBUTION WIDTH 14.3 % (11.7-14.4)
[2018-08-01 14:55] LABS: BACTERIA,URINE MANY /HPF
[2018-08-01 14:58] LABS: INR 0.92; PARTIAL THROMBOPLASTIN TIME 25.8 seconds (23.8-35.5); PROTHROMBIN TIME 13.2 seconds (11.9-14.5)
--- NOTE | 2018-08-01 14:59 | NUR ---
S/W PHARMACY, MEDICATIONS CURRENTLY NOT ON PATIENT PROFILE IN XIS.
[2018-08-01 15:06] LABS: ALANINE AMINOTRANSFERASE 48 IU/L (0-55); ALBUMIN/GLOBULIN RATIO 1.3 (0.8-2.0); ALKALINE PHOSPHATASE 81 IU/L (40-150); ANION GAP 12.8 mmol/L (8-16); BLOOD UREA NITROGEN 16 mg/dL (7-26); BUN/CREATININE RATIO 15 (6-25); CALCIUM 9.2 mg/dL (8.4-10.2); CARBON DIOXIDE 29 mmol/L (22-29); CHLORIDE 102 mmol/L (98-107); CREATINE KINASE 129 IU/L (30-200); CREATININE, SERUM 1.05 mg/dL (0.72-1.25); EST GLOMERULAR FILTRATION RATE > 60 ML/MIN (60-); GLUCOSE 95 mg/dL (74-118); LIPASE 95 U/L (8-78); MAGNESIUM 2.3 MG/DL (1.3-2.1); POTASSIUM 3.8 mmol/L (3.5-5.1); SODIUM 140 mmol/L (136-145)
--- NOTE | 2018-08-01 15:17 | NUR ---
MEDICATIONS ARE STILL NOT ON PATIENT PROFILE IN PYXIS. MEDICATIONS PULLED VIA OVERRIDE.
[2018-08-01] MEDS ORDERED: ASPIRIN 81 MG CHEW TAB ONE (15:20)
[2018-08-01] MEDS ORDERED: SODIUM CHLORIDE 0.9% 1000ML 1,000 ML ONE (15:20)
--- NOTE | 2018-08-01 16:47 | Diagnostic Imaging Report ---
EXAMINATION: CHEST SINGLE (PORTABLE) INDICATION: Left sided chest pain. COMPARISON: None FINDINGS: TUBES and LINES: None. LUNGS: Lungs are well inflated. Lungs are clear. There is no evidence of pneumonia or pulmonary edema. PLEURA: No pleural effusion or pneumothorax. HEART AND MEDIASTINUM: The cardiomediastinal silhouette is unremarkable. BONES AND SOFT TISSUES: Deformity of the right posterolateral sixth and seventh ribs, likely reflecting sequela of prior trauma. UPPER ABDOMEN: No free air under the diaphragm. IMPRESSION: No acute radiographic abnormality. Deformity of the right posterolateral sixth and seventh ribs, likely reflecting sequela of prior trauma. Signed by: Dr. Britney Figueroa MD on 08/01/2018 4:44 PM
[2018-08-01] MEDS ORDERED: NITROGLYCERIN 0.4 MG SUBL SL ONE (17:00)
[2018-08-01] MEDS ORDERED: SODIUM CHLORIDE 0.9% 1000ML 1,000 ML IV SCH (17:30)
[2018-08-01] MEDS ORDERED: FAMOTIDINE 20 MG TAB PO SCH (17:30)
[2018-08-01] MEDS ORDERED: MORPHINE SULFATE INJ 4 MG/ML INJ IV PRN (17:30)
[2018-08-01] MEDS ORDERED: MORPHINE SULFATE 2 MG/ML SYR IV PRN (17:30)
[2018-08-01] MEDS ORDERED: NITROGLYCERIN 0.4 MG SUBL SL PRN (17:30)
[2018-08-01] MEDS ORDERED: ONDANSETRON HCL INJ 2 MG/ML VIAL IV PRN (17:30)
[2018-08-01] MEDS ORDERED: NITROGLYCERIN 2% OINT 1 GM PKT TOP SCH (18:00)
--- OUTSIDE RECORDS SUMMARY | 2018-08-01 18:29 | XMS REPORT | Clinical Summary ---
Author Author [facility] [facility] Address Unknown Phone Unavailable Care Team Providers Care Nurse First Aid Name Role Phone Asked, No Pcp PCP [...] MD Other chest pain (Primary Dx) 11/25/2017 [facility] General Surgery - Encounter 11/26/2017 after [...] MMODE SPECTRAL 3:40 PM CDT COLOR DOPPLER ([id number]) ZZESTIMATED GFR Routine 11/25/2017 2:58 PM CDT [...] included. Troponin <0.300 0.000 - 0.300 ng/mL [facility] DEPARTMENT OF Comment: PATHOLOGY AND 0.30 - 1.49 GENOMIC MEDICINE ng/mlMay indicate increased risk of acute coronary syndrome. >=1.5 ng/ml Consistent with acute myocardial infarction. The diagnostic value of a single normal or non-diagnostic result is questionable.Serial samples at 2-6 hour intervals are required to rule out acute myocardial injury. Specimen Plasma specimen Performing Organization Address [facility] Centercode Phone Number [address] [place] [address] PATHOLOGY AND [facility] MEDICINE * Thyroid stimulating hormone (11/26/2017 5:48 AM CDT) Only the most recent of 2 results within the time period is included. TSH 1.22 0.27 - 4.20 uIU/mL [facility] DEPARTMENT OF PATHOLOGY AND [facility]IC[facility] Specimen Plasma specimen Performing Organization Address City/[facility] Centercode Phone Number [address] [place] [address] PATHOLOGY AND [facility] * Lipid panel (11/26/2017 5:48 AM CDT) Only the most recent of 2 results within the time period is included. Cholesterol 92 <200 mg/dL [facility] DEPARTMENT OF PATHOLOGY AND GENOMIC MEDICINE Triglycerides 83 <150 mg/dL [facility] DEPARTMENT OF PATHOLOGY AND GENOMIC MEDICINE HDL cholesterol 43 >40 mg/dL [facility] DEPARTMENT OF PATHOLOGY AND GENOMIC MEDICINE LDL cholesterol 38Comment: Result obtained by <100 mg/dL [facility] DEPARTMENT OF direct LDL measurement PATHOLOGY AND [facility] Lipid panel SeeBelow [facility] DEPARTMENT OF interpretation Comment: PATHOLOGY [...] mg/dL) Specimen Plasma specimen Performing Organization Address [facility] Centerconh Phone Number [facility] [address] [place] [address] PATHOLOGY AND GENOMIC MEDICINE * XR Chest [...] seen. Impression: No active cardiopulmonary disease identified. [id number] Procedure Note Hm Interface, Radiology Results Incoming [...] seen. Impression: No active cardiopulmonary disease identified. [id number] Performing Organization Address [facility] Centercode Phone Number [facility] [address] [place] [address] * Echocardiogram complete w contrast and 3D [...] LV EF,BP 58.02 % [facility] CUPID Chavo Starford,d A2C 8.05 cm [facility] Chavo Starford,d A4C 7.08 cm [facility] Chavo Starford,s A2C 6.45 cm [facility] Chavo Starford,s A4C 5.78 cm [facility] LV SV,A2C [...] is 55 - 60%. Performing Organization Address City/[facility] Centercode Phone Number [facility] [address] [place] [address] * Estimated GFR (11/25/2017 2:58 PM CDT) GFR Non Af Amer >90 mL/min/1.[address] [facility] DEPARTMENT OF PATHOLOGY AND GENOMIC MEDICINE GFR Af Amer >90 mL/min/1.[address] [facility] DEPARTMENT OF Comment: PATHOLOGY AND [...] Americans. Specimen Plasma specimen Performing Organization Address City/[facility]/Zipcode Phone Number [address] [place] [address] PATHOLOGY AND GENOMIC MEDICINE * Prothrombin time with INR (11/25/2017 2:58 PM CDT) Prothrombin time 14.3 12.0 - 15.[address] [facility] DEPARTMENT OF PATHOLOGY AND GENOMIC MEDICINE INR 1.[address] [facility] DEPARTMENT OF Comment: PATHOLOGY AND The International Normalized GENOMIC MEDICINE Ratio (INR) is a therapeutic monitoring tool for patients who are stable on oral anticoagulant therapy. An INR of 2.0-3.0 is suggested for deep vein thrombosis/pulmonary embolism. Specimen Blood Performing Organization Address City/State/Zipcode Phone Number [facility] [place] [address] [place] [address] PATHOLOGY AND GENOMIC MEDICINE * CBC with platelet and differential (11/25/2017 2:58 PM CDT) WBC 8.64 4.50 - 11.00 k/uL [facility] DEPARTMENT OF PATHOLOGY AND GENOMIC MEDICINE RBC 4.40 4.40 - 6.00 m/uL [facility] DEPARTMENT OF PATHOLOGY AND GENOMIC MEDICINE HGB 13.7 (L) 14.0 - 18.0 g/dL [facility] DEPARTMENT OF PATHOLOGY AND GENOMIC MEDICINE HCT 40.8 (L) 41.0 - 51.0 % [facility] DEPARTMENT OF PATHOLOGY AND GENOMIC MEDICINE MCV 92.7 82.0 - 100.[address] [facility] DEPARTMENT OF PATHOLOGY AND GENOMIC MEDICINE MCH 31.1 27.0 - 34.[address] [facility] DEPARTMENT OF PATHOLOGY AND GENOMIC MEDICINE MCHC 33.6 31.0 - 37.0 g/dL [facility] DEPARTMENT OF PATHOLOGY AND GENOMIC MEDICINE RDW - SD 49.5 37.0 - 55.[address] [facility] DEPARTMENT OF PATHOLOGY AND GENOMIC MEDICINE MPV 11.4 8.8 - 13.[address] [facility] DEPARTMENT OF PATHOLOGY AND GENOMIC MEDICINE Platelet count 212 150 - 400 k/uL [facility] DEPARTMENT OF PATHOLOGY AND GENOMIC MEDICINE Nucleated RBC 0.00 /[address] [facility] DEPARTMENT OF PATHOLOGY AND GENOMIC MEDICINE Neutrophils 69.0 39.0 - 69.0 % [facility] DEPARTMENT OF PATHOLOGY AND GENOMIC MEDICINE Lymphocytes 20.7 (L) 25.0 - 45.0 % [facility] DEPARTMENT OF PATHOLOGY AND GENOMIC MEDICINE Monocytes 8.0 0.0 - 10.0 % [facility] DEPARTMENT OF PATHOLOGY AND GENOMIC MEDICINE Eosinophils 1.5 0.0 - 5.0 % [facility] DEPARTMENT OF PATHOLOGY AND GENOMIC MEDICINE Basophils 0.6 0.0 - 1.0 % [facility] DEPARTMENT OF PATHOLOGY AND GENOMIC MEDICINE Specimen Blood Performing Organization Address [facility] Centerconh Phone Number [address] [place] [address] PATHOLOGY AND GENOMIC MEDICINE * B natriuretic peptide (11/25/2017 2:58 PM CDT) BNP 57 0 - 100 pg/mL [facility] DEPARTMENT OF PATHOLOGY AND GENOMIC MEDICINE Specimen Blood Performing Organization Address [facility] Phone Number [address] [place] [address] PATHOLOGY AND GENOMIC MEDICINE * Magnesium level (11/25/2017 2:58 PM CDT) Magnesium 2.0 1.6 - 2.6 mg/dL [facility] DEPARTMENT OF PATHOLOGY AND GENOMIC MEDICINE Specimen Plasma specimen Performing Organization Address [facility] Phone Number [address] [place] [address] PATHOLOGY AND GENOMIC [facility] * Creatine kinase, total (CPK) (11/25/2017 2:58 PM CDT) Creatine kinase 115 39 - 308 U/L [facility] DEPARTMENT OF PATHOLOGY AND GENOMIC MEDICINE Specimen Plasma specimen Performing Organization Address [facility] Phone Number [address] [place] [address] PATHOLOGY AND [facility] * Comprehensive metabolic panel (11/25/2017 2:58 PM CDT) Sodium 136 135 - 148 mEq/L [facility] DEPARTMENT OF PATHOLOGY AND GENOMIC MEDICINE Potassium 4.7 3.5 - 5.0 mEq/L [facility] DEPARTMENT OF PATHOLOGY AND GENOMIC MEDICINE Chloride 102 98 - 112 mEq/L [facility] DEPARTMENT OF PATHOLOGY AND GENOMIC MEDICINE CO2 22 (L) 24 - 31 mEq/L [facility] DEPARTMENT OF PATHOLOGY AND GENOMIC MEDICINE Anion gap 12 7 - 15 mEq/L [facility] DEPARTMENT OF Comment: PATHOLOGY AND Starting from October [facility] , anion gap calculation no longer incorporates potassium. Please note the change. BUN 13 6 - 20 mg/dL [facility] DEPARTMENT OF PATHOLOGY AND GENOMIC MEDICINE Creatinine 0.6 (L) 0.7 - 1.2 mg/dL [facility] DEPARTMENT OF PATHOLOGY AND GENOMIC MEDICINE Glucose 105 (H) 65 - 99 mg/dL [facility] DEPARTMENT OF PATHOLOGY AND GENOMIC MEDICINE Calcium 8.8 8.3 - 10.2 mg/dL [facility] DEPARTMENT OF PATHOLOGY AND GENOMIC MEDICINE Protein 6.6 6.3 - 8.3 g/dL [facility] DEPARTMENT OF Comment: PATHOLOGY AND [place] GENOMIC MEDICINE 4.6-7.0 g/dL 1 week 4.4-7.6 g/dL 7 months-1year 5.1-7.3 g/dL 1-2 years5.6-7 .5 g/dL >3 years6.0-8 .0 g/dL 18-150 6.3-8.3 g/dL Albumin 4.1 3.5 - 5.0 g/dL [facility] DEPARTMENT OF PATHOLOGY AND GENOMIC MEDICINE A/G ratio 1.6 0.7 - 3.[address] [facility] DEPARTMENT OF PATHOLOGY AND GENOMIC MEDICINE Alkaline phosphatase 74 40 - 129 U/L [facility] DEPARTMENT OF PATHOLOGY AND GENOMIC MEDICINE AST 29 10 - 50 U/L [facility] DEPARTMENT OF PATHOLOGY AND GENOMIC MEDICINE ALT 30 5 - 50 U/L [facility] DEPARTMENT OF PATHOLOGY AND GENOMIC MEDICINE Total bilirubin 0.5 0.0 - 1.2 mg/dL [facility] DEPARTMENT OF PATHOLOGY AND GENOMIC MEDICINE Specimen Plasma specimen Performing Organization Address City/[facility]/Zipcode Phone Number [facility] [address] [place] [address] PATHOLOGY AND GENOMIC MEDICINE * ECG 12 lead (11/25/2017 2:50 PM CDT) Ventricular rate 56 [facility] Atrial rate 56 [facility] MD interval 134 [facility] QRSD interval 90 [facility] QT interval 426 [facility] QTC interval 411 [facility] P axis 1 62 [facility] QRS axis 1 54 [facility] T wave axis 57 [facility] EKG impression Sinus bradycardia-Otherwise [facility] MUSE normal ECG-In automated comparison with ECG of 11-DEC-2009 08:57,-No significant change was found- Performing Organization Address City/[facility]/Zipcode Phone Number [facility] [employer] [address] [place] [address] after 07/31/2017 Insurance Payer Benefit Subscriber ID Type Phone Address Plan / Group BCBS BCBS OUT xxxxxxxxxxxxx PPO OF STATE Advance Directives Patient has advance care planning documents, and code status on file. For more i nformation, please contact: Zelalem Kuhn [address] [place] [address] Date Inactivated Comments Code Status Date Activated 11/26/2017 6:20 PM Full Code 11/25/2017 2:39 PM Code Status decision reached by: Patient
[2018-08-01] MEDS: FAMOTIDINE 20 MG TAB PO SCH (18:57)
[2018-08-01] MEDS ORDERED: HYDRALAZINE HCL 20 MG/ML VIAL IV PRN (19:00)
[2018-08-01] MEDS: ALBUTEROL/IPRATROPIUM 3 ML NEB NEB SCH (19:00)
--- NOTE | 2018-08-01 19:31 | NUR ---
RT NOTIFIED FOR DUONEB TREATMENT.
[2018-08-01] MEDS: MEROPENEM 500MG 500 MG in SODIUM CHLORIDE 0.9% 50ML 50 ML IV SCH (20:25)
[2018-08-01] MEDS ORDERED: SODIUM CHLORIDE 0.9% 50ML 50 ML ONE (20:38)
[2018-08-01] MEDS ORDERED: IOPAMIDOL 370 MG/ML 200 ML INFUS..BTL INJ ONE (20:39)
--- NOTE | 2018-08-01 20:58 | Diagnostic Imaging Report ---
EXAMINATION: CT of the chest with contrast, PE protocol. TECHNIQUE: Spiral CT images of the chest were performed from the lung apices through the level of the adrenal glands after the IV administration of 100 cc of Isovue-370. Thin section reconstructions were obtained with special concentration on the pulmonary arteries. Coronal and sagittal reformatted images were also performed. COMPARISON: <none> CLINICAL HISTORY:Chest pain, shortness of breath DISCUSSION: Lungs: No filling defects are identified in the main, right or left pulmonary arteries to their segmental levels, to suggest pulmonary embolism. Moderate bilateral centrilobular emphysematous changes, predominantly on the upper lobes and worse on the right. Mild to moderate right paraseptal bullous changes. Multiple bilateral calcified granulomas. Mild subpleural reticulation noted in the lower lobes, likely reflecting mild interstitial changes. Minimal bilateral lower lobe dependent atelectasis. No pulmonary nodules, masses or consolidation. Airways are clear, without bronchial lesions. Pleura: <There is no evidence of pleural effusion or pneumothorax.> Heart and mediastinum: Thyroid is unremarkable. Heart is borderline enlarged. Atherosclerotic calcification of the coronary arteries and thoracic aortic arch. Aorta is not aneurysmal. Main pulmonary artery measures 2.5 cm. Lymph nodes: No mediastinal, hilar or axillary adenopathy. Calcified left lower paratracheal lymph node (series 2, image 43). Abdomen: The visualized portions of the liver, pancreas, adrenal glands and kidneys are unremarkable. Splenic granulomata. Bones and soft tissues: No aggressive lytic lesions. Soft tissues are grossly unremarkable. IMPRESSION: 1. No CT evidence of pulmonary embolism. 2. Moderate bilateral centrilobular emphysematous changes, predominantly in the upper lobes and worse on the right. Mild to moderate right paracentral bullous changes. 3. Mild pleural fibrotic changes in the lower lobes. No nodules, masses or consolidation. Signed by: Dr. Kiran Castillo M.D. on 08/01/2018 8:54 PM
[2018-08-01] MEDS ORDERED: ATORVASTATIN 20 MG TAB PO SCH (21:00)
[2018-08-01 21:56] VITALS: BP 133/68
[2018-08-02] VITALS (8 sets, daily range): BP systolic 152–181; BP diastolic 72–79
--- NOTE | 2018-08-02 00:02 | NUR ---
CALLED AND SPOKE WITH DR PATRICIO MADE HER AWARE THE PATIENT IS CONSULTED TO HER. THE MD ORDERED TO GET CARDIAC MARKER (THE 2ND AND THE 3RD) . WILL CONTINUE TO MONITOR.
[2018-08-02 00:54] LABS: CREATINE KINASE 75 IU/L (30-200)
[2018-08-02] MEDS: MEROPENEM 500MG 500 MG in SODIUM CHLORIDE 0.9% 50ML 50 ML IV SCH ×2 (04:06→12:00)
[2018-08-02] MEDS ORDERED: SODIUM CHLORIDE 0.9% 50ML 50 ML ONE (04:12)
[2018-08-02 05:35] LABS: BASOPHILS % 0.5 % (0.0-1.0); EOSINOPHILS # (AUTO) 0.2 (0.0-0.4); EOSINOPHILS % 2.6 % (0.0-6.0); HEMATOCRIT 39.2 % (38.2-49.6); HEMOGLOBIN 12.4 g/dL (14.0-18.0); LYMPHOCYTES # (AUTO) 1.9 (1.0-3.2); LYMPHOCYTES % 25.2 % (18.0-39.1); MEAN CORPUSCULAR HGB CONC 31.6 g/dL (31-35); MEAN CORPUSCULAR VOLUME 94.9 fL (81-99); MONOCYTES # (AUTO) 0.6 (0.2-0.8); MONOCYTES % 8.6 % (4.4-11.3); NEUTROPHILS # (AUTO) 4.6 (2.1-6.9); NEUTROPHILS % 62.6 % (38.7-80.0); PLATELET COUNT 189 x10e3/uL (140-360); RED BLOOD COUNT 4.13 x10e6/uL (4.3-5.7); RED CELL DISTRIBUTION WIDTH 14.4 % (11.7-14.4)
[2018-08-02 06:10] LABS: ANION GAP 11.2 mmol/L (8-16); BLOOD UREA NITROGEN 13 mg/dL (7-26); BUN/CREATININE RATIO 16 (6-25); CALCIUM 8.4 mg/dL (8.4-10.2); CARBON DIOXIDE 28 mmol/L (22-29); CHLORIDE 105 mmol/L (98-107); CHOL/HDL RATIO 1.9 (3.9-4.7); CHOLESTEROL 114 MD/DL (0-199); CREATINE KINASE 65 IU/L (30-200); EST GLOMERULAR FILTRATION RATE > 60 ML/MIN (60-); GLUCOSE 96 mg/dL (74-118); HDL CHOLESTEROL 60 MG/DL (40-60); LDL CHOLESTEROL 43 MG/DL (60-130); LIPASE 47 U/L (8-78); POTASSIUM 4.2 mmol/L (3.5-5.1); SODIUM 140 mmol/L (136-145); TRIGLYCERIDES 57 MG/DL (0-149)
--- NOTE | 2018-08-02 06:40 | NUR ---
rounded with slot shift manager nurse, patient sleeping in bed and in no distress. call sanchez within reach and bed in lowest position.
[2018-08-02] MEDS: ALBUTEROL/IPRATROPIUM 3 ML NEB NEB SCH ×3 (07:40→15:15)
[2018-08-02] MEDS: FAMOTIDINE 20 MG TAB PO SCH (08:15)
[2018-08-02] MEDS ORDERED: ASPIRIN 81 MG ENTERIC COATED PO SCH (09:00)
--- NOTE | 2018-08-02 09:30 | NUR ---
patient left the floor in wheelchair to go for MRI procedure, in stable condition and alert and oriented.
--- NOTE | 2018-08-02 10:05 | NUR ---
SOCIAL WORK INITIAL ASSESSMENT Timekeeper Supervisor to bedside to discuss plan of care with patient/family. CM/SW role and care transitions discussed. Anticipated discharge plan discussed along with duration of care. CM/SW discussed patients right to make decisions in care. CM/SW work hours given. Patient lives: IN MOBILE HOME WITH Admit/Transfer: VIA ED FROM HOME POA/Emergency contact: VIOLETA [phone] Current/Previous Home Health: NONE PCP/Follow-up Care: [facility] Current/Previous DME: NONE Other Services: NONE Employment Status: [employer] Areas of Concerns: NONE Referral Needs: NONE Education Needs: NONE IMM/MATA given and signed (if applicable): NA Goal for discharge: RETURN HOME INDEPENDENTLY CM/SW left business card at the bedside with contact information. Name and number was also written on the patients whiteboard. Patient verbalized understanding of discussion. CM will follow-up with ongoing discharge and transition of care needs.
--- NOTE | 2018-08-02 10:39 | Diagnostic Imaging Report ---
Examination: MRI BRAIN WITHOUT CONTRAST History: Lightheadedness. Rule out stroke. Comparison studies: None Technique: Sagittal T2; axial DWI, FLAIR, GRE or SWI, T1, Coronal FLAIR. Intravenous contrast: None Findings: Scalp: No abnormal signal. No masses. Bone marrow: Normal in signal intensity. Brain volume: Mild biparietal volume loss. Ventricles: Normal in size and configuration. No hydrocephalus. Extra-axial spaces: No abnormalities. Parenchyma: No abnormal signal intensities. No masses, hemorrhage, acute or chronic vascular insults. Suprasellar and sellar region: No abnormalities. Craniocervical junction: No abnormalities. The foramen magnum is patent. No Chiari malformations. Vessels: Normal flow-voids in the arteries and sinuses. Additional findings:None. IMPRESSION: 1. No acute intracranial abnormalities, specifically, no acute infarct. 2. Nonspecific mild biparietal volume loss. Signed by: Dr. Tracy Feliciano M.D. on 08/02/2018 10:36 AM
[2018-08-02] MEDS ORDERED: LISINOPRIL 20 MG TAB PO SCH (13:00)
--- NOTE | 2018-08-02 14:37 | Consultation ---
DATE OF CONSULTATION: CARDIOLOGY CONSULTATION REASON FOR CONSULTATION: Chest pain. HISTORY OF PRESENT ILLNESS: This is a 58-year-old man with a history of nonobstructive coronary artery disease by cardiac catheterization in September 2017, hypertension, hyperlipidemia, prior tobacco use and chronic obstructive pulmonary disease, who presented to the emergency department with chest discomfort. The patient states he had lower left and central chest pressure, mild to moderate in severity, no exertional symptoms. Mildly worsened with food intake, similar to his reflux symptoms. Upon arrival here, he was hemodynamically stable with negative cardiac enzymes and normal ECG. CT angiogram of the chest showed no pulmonary embolism or aortic pathology. He is currently asymptomatic and denies any cardiac symptoms. Specifically, he denies any chest pressure, exertional angina, shortness of breath, palpitations, PND, orthopnea, or syncopal episodes. The patient had a normal echocardiogram and cardiac catheterization in September 2017. REVIEW OF SYSTEMS: A 12-point review of systems was conducted and was negative other than that as stated above in the HPI. PAST MEDICAL HISTORY: Hypertension, hyperlipidemia, gastroesophageal reflux disease, nonobstructive coronary artery disease, COPD. PAST SURGICAL HISTORY: Cardiac catheterization. No recent surgical procedures. SOCIAL HISTORY: Former smoker. No current illicit drug use, alcohol use or tobacco use. ALLERGIES: NO KNOWN DRUG ALLERGIES. MEDICATIONS: See medication reconciliation form. FAMILY HISTORY: Noncontributory. PHYSICAL EXAMINATION VITAL SIGNS: Temperature 95.8, heart rate 55, respirations 18, blood pressure 181/78, oxygen saturation 97% on room air. GENERAL: He is a well-appearing, well-built, man seated at bedside in no apparent distress, alert and oriented x3. HEAD: Normocephalic and atraumatic. EYES: The extraocular muscles are intact. Conjunctivae are clear. NECK: No JVD. No bruits. CARDIOVASCULAR: Regular rate and rhythm. No murmurs. LUNGS: Clear to auscultation with mild scattered wheezes. ABDOMEN: Soft, nontender and nondistended. EXTREMITIES: No edema. VASCULAR: 2+ pulses. SKIN: Warm, dry and intact. NEUROLOGIC: No focal deficits noted. Cranial nerves are grossly intact. PSYCHIATRIC: Normal mood and affect. LABORATORY DATA: Reviewed. Hemoglobin is 12.4. Negative troponins x3. BNP is 75. Creatinine 0.81. LDL 43. A 12-lead electrocardiogram shows normal sinus rhythm. CT angiogram of the chest shows emphysematous changes, no pulmonary embolism or thoracic aortic pathology. Chest x-ray shows no acute cardiopulmonary abnormality. IMPRESSION 1. Precordial pain. 2. Gastroesophageal reflux disease. 3. Nonobstructive coronary artery disease. 4. Prior tobacco use. 5. Hypertension. 6. Hyperlipidemia. RECOMMENDATIONS: The patient has ruled out for acute myocardial infarction with 3 sets of negative cardiac enzymes and a normal 12-lead electrocardiogram. He has a normal cardiac catheterization showing mild, nonobstructive disease within the last year. His echocardiogram showed preserved left ventricular systolic function. Continue aspirin, statin and beta luana. Control blood pressure with lisinopril and increase this up to 40 mg as needed. No further cardiac testing is needed at this point in time. He may be discharged from a cardiovascular standpoint with close outpatient monitoring. Job#: [id number]
[2018-08-02] MEDS ORDERED: TOPROL XL25 MG PO (14:50)
[2018-08-02] MEDS ORDERED: MACROBID 100 M100 MG PO (14:51)
--- NOTE | 2018-08-02 15:40 | NUR ---
Visit made by the Spiritual Care Department Pastoral Visitor, Joyce Antunez. PV provided pastoral presence, prayer, hospitality, and supportive listening. Pastoral Visitor informed pt/family of the scope of Family Development Extension Specialist Services and availability. [place] OSBORNE Combination Technician Spiritual Care Department O: [phone] Pager: [phone] ([phone] number calling from)
--- NOTE | 2018-08-02 16:05 | NUR ---
Patient in stable condition. Discharge instructions given to patient, patient verbalized understanding. IV removed at this time, catheter in tact and small dressing applied. Patient to be wheeled from floor to personal auto to discharge home.
--- NOTE | 2018-08-02 16:50 | Discharge Summary ---
PRIMARY CARE DOCTOR: Dr. Sushila Arriaga. FINAL DIAGNOSIS: Atypical chest pain. SECONDARY DIAGNOSES 1. Uncontrolled hypertension. 2. Urinary tract infection. 3. Mild lipase elevation. 4. Questionable ulcerative colitis. CONSULTANTS: Dr. Mason. PROCEDURES/STUDIES PERFORMED: Brain MRI did not show any acute disease. Chest CT is consistent with COPD, no PE, no pneumonia. HISTORY: Per H&P. HOSPITAL COURSE: The patient had 3 negative troponins; so, therefore, no acute myocardial infarction. Patient just had a heart cath about 9 months ago which showed very mild coronary artery disease. Patient was evaluated by Cardiology. Nothing else to do. A CT was done which was negative for pneumonia and PE. As far as his left-sided chest pain, it is slowly getting better. Possibly this could be due to his reflux. He was told to increase his Prilosec from 20 to 40 at home and to take it 30 minutes before any one of the meals. Given the slight elevation in lipase and now the repeat is normal, possibly this could be due to alcoholic pancreatitis. Patient was encouraged to refrain from drinking. Patient did have mild dysuria. Currently his urine has gram-negative rods. Looking back to his last admission 9 months ago, he had ESBL E. coli. Fortunately, it was sensitive to Macrobid. Patient received meropenem while here. He will go home on Macrobid for 5 more days. Patient was seen and examined today. CONDITION ON DISCHARGE: Stable. DISCHARGE MEDICATIONS: Please see medication reconciliation form. LIZETT MORGAN M.D. Job#: [id number] EV cc:SUSHILA ARRIAGA MD
== END 2018-08-02 16:27 | disposition home or self-care (01) ==
LOC: ER 13:51 → ERHOLD 18:26 → IMCU 21:42
PROVIDERS: ADMIT Internal Medicine; ATTEND Internal Medicine
DX: R07.89 Other chest pain (principal); I10 Essential (primary) hypertension; I25.10 Atherosclerotic heart disease of native coronary artery without angina pectoris; E78.5 Hyperlipidemia, unspecified; Z87.891 Personal history of nicotine dependence; N30.00 Acute cystitis without hematuria; C44.301 Unspecified malignant neoplasm of skin of nose; Z83.3 Family history of diabetes mellitus; J44.9 Chronic obstructive pulmonary disease, unspecified; I25.2 Old myocardial infarction; R20.0 Anesthesia of skin; K21.9 Gastro-esophageal reflux disease without esophagitis
CPT/HCPCS: 36415 ×2; 70551; 71045; 71260; 80048; 80053; 80061; 80320; 81001; 82550 ×2; 82553 ×2; 83690 ×2; 83735; 83880; 84484 ×2; 85025 ×2; 85610; 85730; 87086; 87186; 93005; 94640 ×2; 96361; 99285; G0378 ×2; J2185 ×2; J7030 ×2; Q9967

== ENCOUNTER → 2020-10-01 | Outpatient (CLI) | payer BC ==
[~2020-10-01] MED LIST changes: +MACROBID 100 M100 MG PO; +TOPROL XL25 MG PO
== END ==
LOC: US 15:31
PROVIDERS: ATTEND Urology
DX: N43.3 Hydrocele, unspecified (principal)
CPT/HCPCS: 76870; 93976

== ENCOUNTER → 2021-03-07 | Outpatient (CLI) | payer BC | LOC: US 14:36 | PROVIDERS: ATTEND Urology | DX: N39.0 Urinary tract infection, site not specified (principal) | CPT/HCPCS: 74018; 76770; 76857 ==